=== PATIENT | female | born 1990 | race Caucasian/White ===

== ENCOUNTER 2019-11-15 13:35 | Emergency (ER) | payer OTHER, SELFPAY ==
[2019-11-15 13:40] VITALS: BP 151/89; PULSE 112; RESP 18; TEMP 37.1; O2SAT 100
--- NOTE | 2019-11-15 13:44 | ED.GENADULT ---
HPI - General Adult General Chief complaint: Urogenital-Female Stated complaint: lower back pain/urination Time Seen by Provider: 11/15/19 13:54 Source: patient Mode of arrival: ambulatory Limitations: no limitations History of Present Illness HPI narrative: 29-year-old female patient presents to the [facility] with complaints of urinary symptoms. Patient states that she was seen at [facility] about 2 weeks ago and was diagnosed with a UTI at the time and was given Macrobid. Patient states that her symptoms were doing better when she was on the antibiotic until about a couple of days after she finished the antibiotic and now her symptoms have returned with complaints of urgency, frequency, pain with urination and low back pain. Denies any fevers, nausea, vomiting or diarrhea. Patient states unsure if maybe it just did not clear up and wanted to come and get tested again. Related Data Allergies Allergy/AdvReac Type Severity Reaction Status Date / Time No Known Allergies Allergy Verified 11/15/19 13:50 Review of Systems Review of Systems: Narrative: CONSTITUTIONAL: Denies fever, chills, or sweats. EYES: Denies visual changes, redness, or discharge. ENT: Denies rhinorrhea, congestion, sore throat, or otalgia. CARDIOVASCULAR: Denies chest pain, palpitations, or edema. RESPIRATORY: Denies cough or dyspnea. GASTROINTESTINAL: Denies abdominal pain, nausea, vomiting, or diarrhea. GENITOURINARY: Denies dysuria or hematuria. Positive pain with urination, urgency, frequency SKIN: Denies rash or itching. MUSCULOSKELETAL: Positive back pain, denies joint pain, or myalgia. NEUROLOGIC: Denies headache, numbness, or weakness. PSYCHIATRIC: Denies anxiety or depression. [facility] Past Medical History Medical History Gestational diabetes Hypertension affecting UTI (urinary tract infection) Surgical History Surgical History Previous section x3 Social History Social History Gender identity (if verbalized by the patient): Female Comments At the time of my signature I agree with nursing past medical history, surgical, social, and family history. There is no relevant family history pertinent to the presenting complaint. Exam Narrative: Exam Narrative: GENERAL: Well-appearing, well-nourished, and in no acute distress. HEAD: Normocephalic, atraumatic. EYES: PERRLA and EOMI. ENT: Nares clear, no rhinorrhea or epistaxis. Mucous membranes moist. NECK: Supple. No lymphadenopathy CHEST: Clear to auscultation. No respiratory distress. HEART: Regular rate and rhythm. No murmur heard. Normal peripheral pulses. ABDOMEN: Soft, nontender, nondistended, normal active bowel sounds. No CVA tenderness on percussion. EXTREMITIES: Normal range of motion. No edema. SKIN: Warm, dry, no rash. NEURO: No focal deficits. Alert and oriented x3. Course Vital Signs Vital signs: Vital Signs Temperature 37.1 C 11/15/19 13:40 Pulse Rate 112 H 11/15/19 13:40 Respiratory Rate 18 11/15/19 13:40 Blood Pressure 151/89 H 11/15/19 13:40 Pulse Oximetry 100 11/15/19 13:40 Temperature 37.1 C 11/15/19 13:40 Pulse Rate 112 H 11/15/19 13:40 Respiratory Rate 18 11/15/19 13:40 Blood Pressure 151/89 H 11/15/19 13:40 Pulse Oximetry 100 11/15/19 13:40 Vital signs reviewed. Medical Decision Making Differential Diagnosis Differential Diagnosis: Differential diagnosis: Uncomplicated lower UTI, uncomplicated UTI, pyelonephritis Notify patient that her urine dip did show evidence of a UTI as well as her symptoms and therefore we will discharge her home with a different type of antibiotic and send a culture off to the lab. Discussed with patient that if the antibiotic is not sensitive to the bacteria found on the culture she will receive a phone call from someon
== END 2019-11-15 14:07 | disposition home or self-care (01) ==
PROVIDERS: Emergency Provider Nurse Practitioner Family
DX: N30.01 Acute cystitis with hematuria (principal)
CPT/HCPCS: 81003; 87077; 87086; 87088; 87186; 99213; G0463

== ENCOUNTER 2020-11-18 15:31 | Emergency (ER) | payer OTHER, SELFPAY ==
--- NOTE | ~2020-11-18 | XR_ITS ---
XR ankle RT min 3V DATE: 11/18/2020 15:51 INDICATION: Patient fell down 4 steps. Anterolateral ankle pain. TECHNIQUE: 4 views COMPARISON: None FINDINGS: Mild posterior calcaneal enthesopathy. No fracture or dislocation of the ankle or disruption of the ankle mortise. IMPRESSION: No fracture or dislocation of the ankle Reviewed, dictated and finalized at location A. ASSESSOR
[2020-11-18 15:38] VITALS: BP 148/92; PULSE 100; RESP 20; TEMP 36.5; O2SAT 99
--- NOTE | 2020-11-18 16:20 | ED.GENADULT ---
HPI - General Adult General Chief complaint: Extremity Injury, Lower <Aixa Gallegos PA-C - Last Filed: 11/18/20 16:34> Stated complaint: right ankle pain <Aixa Gallegos PA-C - Last Filed: 11/18/20 16:34> Time Seen by Provider: 11/18/20 15:51 <Aixa Gallegos PA-C - Last Filed: 11/18/20 16:34> Source: patient <GARRY Hare Last Filed: 11/18/20 16:34> Mode of arrival: ambulatory <GARRY Hare Last Filed: 11/18/20 16:34> Limitations: no limitations <Aixa Gallegos PA-C - Last Filed: 11/18/20 16:34> History of Present Illness HPI narrative: 30-year-old female who slipped when she stepped on a child's toy on the steps and went down two steps and twisted her ankle. Accident happened about 2 hours prior to coming to the emergency room, she states she tried to treat at home with some ice. States she is able to limp but with significant pain. <Aixa Gallegos PA-C - Last Filed: 11/18/20 16:34> Onset (ago): hour(s) <Aixa Gallegos PA-C - Last Filed: 11/18/20 16:34> Location: lower extremity (right ankle) <GARRY Hare Last Filed: 11/18/20 16:34> Severity scale (1-10): 3 (at rest) <Aixa Gallegos PA-C - Last Filed: 11/18/20 16:34> Quality: aching <GARRY Hare Last Filed: 11/18/20 16:34> Pain Consistency: intermittent (worse with movment or weight bearing) <Aixa Gallegos PA-C - Last Filed: 11/18/20 16:34> Relieving factors: rest <GARRY Hare Last Filed: 11/18/20 16:34> Exacerbating factors: movement <Aixa Gallegos PA-C - Last Filed: 11/18/20 16:34> Associated symptoms: denies other symptoms <Aixa Gallegos PA-C - Last Filed: 11/18/20 16:34> Treatments prior to arrival: none <Aixa Gallegos PA-C - Last Filed: 11/18/20 16:34> Related Data Home medications: Home Medications Medication Instructions Recorded Confirmed No Home Medications 11/18/20 11/18/20 <Aixa Gallegos PA-C - Last Filed: 11/18/20 16:34> Allergies/adverse reactions: Allergies Allergy/AdvReac Type Severity Reaction Status Date / Time No Known Allergies Allergy Verified 11/18/20 15:42 <Aixa Gallegos PA-C - Last Filed: 11/18/20 16:34> Review of Systems Review of Systems: All systems reviewed & are unremarkable except as noted in HPI and below <Aixa Gallegos PA-C - Last Filed: 11/18/20 16:34> [facility] Past Medical History Medical History: Medical History (Updated 11/18/20 @ 16:33 by Aixa Gallegos PA-C) Gestational diabetes Hypertension affecting UTI (urinary tract infection) <Aixa Gallegos PA-C - Last Filed: 11/18/20 16:34> Surgical History Surgical History: Surgical History Previous section x3 <Aixa Gallegos PA-C - Last Filed: 11/18/20 16:34> Social History Social History: Social History (Updated 11/18/20 @ 16:24 by Aixa Gallegos PA-C) Smoking status: Never smoker Alcohol intake: never Substance use: never Living arrangements: with family Occupation/Education: occupation 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 [employer] Gender identity (if verbalized by the patient): Female <Aixa Gallegos PA-C - Last Filed: 11/18/20 16:34> Exam Const: General: no acute distress and alert <Aixa Gallegos PA-C - Last Filed: 11/18/20 16:34> Orientation/consciousness: patient oriented x3 <GARRY Hare Last Filed: 11/18/20 16:34> Eyes: Pupils: Equal, round and reactive pupils present <GARRY Hare Last Filed: 11/18/20 16:34> Resp: Effort & Inspection: normal respiratory effort <GARRY Hare Last Filed: 11/18/20 16:34> Cardio: Rate: regular rate <GARRY Hare Last Filed: 11/18/20 16:34> Rhythm: regular rhythm <GARRY Hare Last Filed: 11/18/20 16:34> [facility]
[2020-11-18 16:41] VITALS: BP 136/70; PULSE 70; RESP 12; O2SAT 99
== END 2020-11-18 16:41 | disposition home or self-care (01) ==
PROVIDERS: Emergency Provider General Practice; PCP Nurse Practitioner Family
DX: S93.401A Sprain of unspecified ligament of right ankle, initial encounter (principal); S96.911A Strain of unspecified muscle and tendon at ankle and foot level, right foot, initial encounter; Z87.440 Personal history of urinary (tract) infections; W10.9XXA Fall (on) (from) unspecified stairs and steps, initial encounter
CPT/HCPCS: 73610; 99283

== ENCOUNTER 2021-06-19 11:15 | Emergency (ER) | payer OTHER, SELFPAY ==
[2021-06-19 11:27] VITALS: BP 135/91; PULSE 99; RESP 18; TEMP 36.8; O2SAT 100
--- NOTE | 2021-06-19 11:39 | ED.FEMALEGU ---
HPI - Female Genitourinary General Chief complaint: Urogenital-Female Stated complaint: Female Genitalia Source: patient Mode of arrival: ambulatory Limitations: no limitations History of Present Illness HPI Narrative: Patient is a 30-year-old female who presents complaining of vaginal itching and discharge. Patient reports symptoms x1 week. She reports slight burning with urination. She reports using [id number] Monistat and Azo without relief. She denies known exposure to STDs. She denies pelvic pain. Patient denies possibility of . Patient has no significant medical history. Patient unable to get into HEALTHCARE MANAGEMENT CONSULTANT or PCP at this time. MD elicited complaint: vaginal discharge Related Data Allergies Allergy/AdvReac Type Severity Reaction Status Date / Time No Known Allergies Allergy Verified 06/19/21 11:31 Review of Systems Review of Systems: CONSTITUTIONAL: Denies fever, chills, or sweats. EYES: Denies visual changes, redness, or discharge. ENT: Denies rhinorrhea, congestion, sore throat, or otalgia. CARDIOVASCULAR: Denies chest pain, palpitations, or edema. RESPIRATORY: Denies cough or dyspnea. GASTROINTESTINAL: Denies abdominal pain, nausea, vomiting, or diarrhea. GENITOURINARY: Reports mild dysuria, vaginal discharge SKIN: Denies rash or itching. MUSCULOSKELETAL: Denies back pain, joint pain, or myalgia. NEUROLOGIC: Denies headache, numbness, dizziness, or weakness. PSYCHIATRIC: Denies anxiety or depression. 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 Please see nursing chart for further information. There is no relevant family history pertinent to the presenting complaint. Exam Narrative: GENERAL: Well-appearing, well-nourished, and in no acute distress. HEAD: Normocephalic, atraumatic. EYES: EOMI. No redness or drainage. Conjunctiva are normal. ENT: Mucous membranes pink and moist. CHEST: No respiratory distress. HEART: Regular rate and rhythm. : Patient declines pelvic exam at this time as she has children with her. MUSCULOSKELETAL: No bony tenderness. EXTREMITIES: Normal range of motion. No edema. SKIN: Warm, dry, no rash. NEURO: No focal deficits. Alert and oriented x3. Gait steady. PSYCH: Normal affect. No signs of depression or anxiety. Course Vital Signs Vital signs: Vital Signs Temperature 36.8 C 06/19/21 11:27 Pulse Rate 99 06/19/21 11:27 Respiratory Rate 18 06/19/21 11:27 Blood Pressure 135/91 H 06/19/21 11:27 Pulse Oximetry 100 06/19/21 11:27 Temperature 36.8 C 06/19/21 11:27 Pulse Rate 99 06/19/21 11:27 Respiratory Rate 18 06/19/21 11:27 Blood Pressure 135/91 H 06/19/21 11:27 Pulse Oximetry 100 06/19/21 11:27 Reviewed-patient is informed that they may have pre-hypertension or hypertension based on a blood pressure reading. I recommend the patient call the primary care provider listed on their discharge instructions or a physician of their choice this week to arrange follow-up for further evaluation of possible pre-hypertension or hypertension. MDM - Female Genitourinary MDM Narrative Medical decision making narrative: Patient declines pelvic exam at this time as she has children in the room with her. Discussed with patient the need to do a
[2021-06-19 12:01] LABS: Glucose Point of Care 96 mg/dl (65-105)
== END 2021-06-19 12:06 | disposition home or self-care (01) ==
PROVIDERS: Emergency Provider Nurse Practitioner; PCP Nurse Practitioner Family
DX: N89.8 Other specified noninflammatory disorders of vagina (principal)
CPT/HCPCS: 81003; 82948; 87491; 87591; 87661; 99214; G0463

== ENCOUNTER 2022-01-04 06:34 | Emergency (ER) | payer OTHER, SELFPAY ==
[2022-01-04 06:37] VITALS: BP 154/105; PULSE 104; RESP 17; TEMP 37.3; O2SAT 97
--- NOTE | 2022-01-04 07:40 | PC.NURSE ---
Pt seen walking out by staff that was sitting near her room
== END 2022-01-04 07:40 | disposition left against medical advice (07) ==
PROVIDERS: PCP Nurse Practitioner Family
DX: J02.9 Acute pharyngitis, unspecified (principal)
CPT/HCPCS: 99199

== ENCOUNTER 2022-01-04 08:03 | Emergency (ER) | payer OTHER, SELFPAY ==
[2022-01-04 08:11] VITALS: BP 121/84; PULSE 113; RESP 16; TEMP 37.2; O2SAT 99
--- NOTE | 2022-01-04 08:16 | ED.URI ---
HPI - URI/Sore Throat General Chief Complaint: Upper Respiratory Infection Stated Complaint: Sore Throat,Ear Pain Time Seen by Provider: 01/04/22 08:16 Source: patient Mode of arrival: ambulatory Limitations: no limitations History of Present Illness HPI Narrative: 31-year-old female presents with complaint of sore throat, right ear pain for 3 days. Unsure if fever, does not have thermometer to check temp. Has had chills, fatigue, headache, bodyaches. Was at ER this AM and states wait was too long. All systems reviewed and negative except as noted above. Related Data Allergies Allergy/AdvReac Type Severity Reaction Status Date / Time No Known Allergies Allergy Verified 01/04/22 08:06 Review of Systems Review of Systems: CONSTITUTIONAL: Reports fever, chills, or sweats. EYES: Denies visual changes, redness, or discharge. ENT: Denies rhinorrhea, congestion. Reports sore throat, or otalgia. CARDIOVASCULAR: Denies chest pain, palpitations, or edema. RESPIRATORY: Denies cough or dyspnea. GASTROINTESTINAL: Denies abdominal pain, nausea, vomiting, or diarrhea. GENITOURINARY: Denies dysuria or hematuria. SKIN: Denies rash or itching. MUSCULOSKELETAL: Denies back pain, joint pain, or myalgia. NEUROLOGIC: Denies headache, numbness, or weakness. PSYCHIATRIC: Denies anxiety or depression. All other systems reviewed are negative, except as documented in HPI. 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 There is no relevant family history pertinent to the presenting complaint. Exam Narrative: GENERAL: This is a well-nourished, well-developed patient, in no apparent distress. HEAD: normocephalic, atraumatic. EYES: PERRL. Sclera clear/white. Vision is grossly intact. EARS: External ears normal, auditory canals clear and without drainage, TMs normal without perforation. Hearing grossly intact. NOSE: External nose normal with no obvious nasal discharge, nares without redness, no rhinorrhea. THROAT: Mucous membranes moist. Erythema to posterior pharynx, tonsils 1+ bilaterally, exudates. NECK: Neck supple, non-tender without lymphadenopathy, masses or thyromegaly. CARDIOVASCULAR: Regular rate and rhythm without murmurs, gallops, or rubs. RESPIRATORY: Clear to auscultation. Breath sounds equal bilaterally. No wheezes, rales, or rhonchi. GASTROINTESTINAL: Abdomen soft, non-tender, nondistended. Bowel sounds are active. No hepato-splenomegaly, or palpable masses. No guarding. SKIN: warm, Dry, intact with no suspicious lesions or rash, good texture and turgor. NEURO: awake, alert, and oriented to person, place and time. There were no obvious focal neurologic abnormalities. EXTREMITIES: No joint tenderness, effusion, or edema noted. No calf tenderness. Negative Homans sign bilaterally. BACK: Nontender without deformity. No CVA tenderness. Course Course Level of Care: Express Care Visit Vital Signs Vital signs: Vital Signs Temperature 37.2 C 01/04/22 08:11 Pulse Rate 113 H 01/04/22 08:11 Respiratory Rate 16 01/04/22 08:11 Blood Pressure 121/84 01/04/22 08:11 Pulse Oximetry 99 01/04/22 08:11 Temperature 37.2 C 01/04/22 08:11 Pulse Rate 113 H 01/04/22 08:11 Respiratory Rate 16 01/04/22 08:11 Blood Pressure 121/84 01/04/22 08:11 Pulse Oximetry 99 03/1
== END 2022-01-04 08:24 | disposition home or self-care (01) ==
PROVIDERS: Emergency Provider Nurse Practitioner Family; PCP Nurse Practitioner Family
DX: J02.0 Streptococcal pharyngitis (principal)
CPT/HCPCS: 87880; 99213; G0463

== ENCOUNTER 2022-01-19 15:03 | Emergency (ER) | payer OTHER, SELFPAY ==
[2022-01-19 15:14] VITALS: BP 136/85; PULSE 98; RESP 18; TEMP 36.6; O2SAT 100
--- NOTE | 2022-01-19 15:29 | ED.FEMALEGU ---
HPI - Female Genitourinary General Chief complaint: Urogenital-Female Stated complaint: vaginal discharge Time Seen by Provider: 01/19/22 15:29 Source: patient and RN notes reviewed Mode of arrival: ambulatory Limitations: no limitations History of Present Illness HPI Narrative: 31-year-old female presented for complaint of vaginal discharge of the last few days. Discharge is white in color. She endorses burning with intercourse and wiping. She states it started after she went swimming and attributes it to this. She denies concern for STDs and would not like to be checked. Denies nausea, vomiting, diarrhea, dysuria, hematuria, irregular bleeding, flank pain, fever, lesions or order at this time. She did try 1 dose of [id number] yeast medication without any relief in symptoms. LMP 12/22/21. Related Data Allergies Allergy/AdvReac Type Severity Reaction Status Date / Time No Known Allergies Allergy Verified 01/19/22 15:39 Review of Systems Review of Systems: CONSTITUTIONAL: Denies body aches, fever, chills, or sweats. CARDIOVASCULAR: Denies chest pain, palpitations, or edema. RESPIRATORY: Denies cough or dyspnea. GASTROINTESTINAL: Denies abdominal pain, nausea, vomiting, or diarrhea. GENITOURINARY: Reports vaginal dc, denies dysuria, frequency, urgency, hematuria, flank pain SKIN: Denies rash, itching, or wounds. MUSCULOSKELETAL: Denies back pain or myalgia. 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 Please see nursing chart for further information. There is no relevant family history pertinent to the presenting complaint Exam Narrative: GENERAL: Well-appearing HEAD: Normocephalic EYES: EOMI. . ENT: Mucous membranes pink and moist. NECK: Normal AROM. Supple. CHEST: No respiratory distress. Clear to auscultation. HEART: Regular rate and rhythm. ABDOMEN: Soft, nontender, nondistended, normal active bowel sounds. No CVA tenderness MUSCULOSKELETAL: No bony tenderness. SKIN: Warm, dry, no rash. NEURO: No focal deficits. Alert and oriented x3. Gait steady. PSYCH: Normal affect. No signs of depression or anxiety. Course Course Emergency Course: Patient is aware of diagnosis, understands and agrees to treatment plan. Anticipatory guidance given. Patient agrees to follow-up as directed and is aware of reasons to seek care at the emergency department. Portions of this record may have been created with voice recognition software Level of Care: Express Care Visit Vital Signs Vital signs: Vital Signs Temperature 98 F 01/19/22 15:14 Pulse Rate 98 01/19/22 15:14 Respiratory Rate 18 01/19/22 15:14 Blood Pressure 136/85 01/19/22 15:14 Pulse Oximetry 100 01/19/22 15:14 Temperature 98 F 01/19/22 15:14 Pulse Rate 98 01/19/22 15:14 Respiratory Rate 18 01/19/22 15:14 Blood Pressure 136/85 01/19/22 15:14 Pulse Oximetry 100 01/19/22 15:14 Reviewed MDM - Female Genitourinary MDM Narrative Medical decision making narrative: Pt provided minimal urine sample which showed no leuk/Nit. She drank water and provided another sample to be sent for cx. Given her symptoms, Rx Flagyl and diflucan provided. She is advised to get tested for STD at this time but refuses. She will f/u with obgyn
== END 2022-01-19 15:58 | disposition home or self-care (01) ==
PROVIDERS: Emergency Provider Nurse Practitioner Family; PCP Nurse Practitioner Family
DX: N89.8 Other specified noninflammatory disorders of vagina (principal)
CPT/HCPCS: 81003; 87086; 87088; 99213; G0463

== ENCOUNTER 2022-02-10 12:59 | Emergency (ER) | payer OTHER, SELFPAY ==
[2022-02-10 13:10] VITALS: BP 138/86; PULSE 80; RESP 18; TEMP 36.6; O2SAT 100
--- NOTE | 2022-02-10 13:10 | ED.FEMALEGU ---
HPI - Female Genitourinary General Chief complaint: Urogenital-Female Stated complaint: Yeast Infection Time Seen by Provider: 02/10/22 13:10 Source: patient, RN notes reviewed and old records reviewed Mode of arrival: ambulatory Limitations: no limitations History of Present Illness HPI Narrative: 31-year-old female presents to the [facility] with complaints of vaginal dryness and irritation. Has been seen for vaginal discharge on January 19, states that symptoms have not gotten much better. Did take the Diflucan and the Flagyl. States she has irritation and states that she feels very dry worse during intercourse. She has been with the same person for 14 years, low suspicion of STD. Denies any abdominal pain or chest pain. No nausea vomiting or diarrhea. No urgency or burning with urination MD elicited complaint: genital itching Related Data Allergies Allergy/AdvReac Type Severity Reaction Status Date / Time No Known Allergies Allergy Verified 02/10/22 13:32 Review of Systems Review of Systems: All systems reviewed & are unremarkable except as noted in HPI and below Constitutional: Constitutional: Reports no additional constitutional complaints, Denies chills and Denies fatigue Eyes: Eyes: Reports no additional eye complaints ENT: Reports system reviewed and no additional complaints, except as documented Cardiovascular: Cardiovascular: Reports no additional cardiovascular complaints Respiratory: Respiratory: Reports no additional respiratory complaints Gastrointestinal: Gastrointestinal: Reports no additional gastrointestinal complaints, Denies abdominal pain, Denies diarrhea, Denies nausea and Denies vomiting Genitourinary: Genitourinary: Reports as per HPI, Denies hematuria, Denies nocturia, Denies dysuria, Denies flank pain, Denies vaginal discharge and Reports vaginal dryness Musculoskeletal: Musculoskeletal: Reports no additional musculoskeletal complaints and Denies back pain Integumentary/Breasts: Skin/Breast: Reports system reviewed and no additional complaints, except as docu Neurologic: Reports system reviewed and no additional complaints, except as documented Psychiatric: Psychiatric: Reports no additional psychiatric complaints Allergic/Immunologic: Allergic/Immunologic: Reports no additional allergic/immunologic complaints PMFSH Past Medical History Medical History (Updated 02/10/22 @ 19:35 by Joan Elmore APRN) Gestational diabetes Hypertension affecting UTI (urinary tract infection) Surgical History Surgical History Previous section x3 Social History Social History Smoking status: Never smoker Alcohol intake: never Substance use: never 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 There is no relevant family history pertinent to the patient complaint. Exam Const: General: healthy appearing, no acute distress and alert Nutritional Appearance: well nourished Orientation/consciousness: patient oriented x3 Limitations: no limitations HENMT: Head: normal to inspection Ears: external ears normal Eyes: Conjunctivae: conjunctivae normal Pupils: Equal, round and reactive pupils present Neck: Neck: normal visual inspection, no lymphadenopathy and no meningeal signs Chest: Chest palpation & inspection: normal inspection of the chest and abnormal inspection of the chest Resp: Effort & Inspection: normal respiratory effort Auscultation: clear to auscultation bilaterally Cardio: Rate: regular rate Rhythm: regular rhythm GI: GI Palp: Yes Soft to palpation and No Tenderness to palpation present (GI) : General: Yes no CVA tenderness 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
== END 2022-02-10 13:50 | disposition home or self-care (01) ==
PROVIDERS: Emergency Provider Nurse Practitioner; PCP Nurse Practitioner Family
DX: N76.0 Acute vaginitis (principal)
CPT/HCPCS: 87070; 87077; 87491; 87591; 87661; 99214; G0463

== ENCOUNTER 2022-07-18 14:44 | Emergency (ER) | payer OTHER, SELFPAY ==
[2022-07-18 14:51] VITALS: BP 142/89; PULSE 81; RESP 16; TEMP 36.4; O2SAT 100
--- NOTE | 2022-07-18 15:59 | ED.FEMALEGU ---
HPI - Female Genitourinary General Chief complaint: Urogenital-Female Stated complaint: possible yeast infection Time Seen by Provider: 07/18/22 15:59 Source: patient, RN notes reviewed and old records reviewed Mode of arrival: ambulatory Limitations: no limitations History of Present Illness HPI Narrative: 31-year-old female presents to the [facility] with complaints of vaginal discharge. Had similar episode a couple months ago. States that treatment worked very well. States she has a thick white discharge that has a fishy smell. Does not believe that she needs a pelvic exam, similar symptoms a couple of months ago and states treatment worked well. Discussed the patient is nontoxic. Vitals are stable Related Data Allergies Allergy/AdvReac Type Severity Reaction Status Date / Time No Known Allergies Allergy Verified 02/10/22 13:32 Review of Systems Review of Systems: All systems reviewed & are unremarkable except as noted in HPI and below Constitutional: Constitutional: Reports no additional constitutional complaints, Denies chills and Denies fatigue Eyes: Eyes: Reports no additional eye complaints ENT: Reports system reviewed and no additional complaints, except as documented Cardiovascular: Cardiovascular: Reports no additional cardiovascular complaints Respiratory: Respiratory: Reports no additional respiratory complaints Gastrointestinal: Gastrointestinal: Reports no additional gastrointestinal complaints, Denies abdominal pain, Denies diarrhea, Denies nausea and Denies vomiting Genitourinary: Genitourinary: Reports as per HPI, Denies hematuria, Denies nocturia, Denies dysuria, Denies flank pain and Reports vaginal discharge Musculoskeletal: Musculoskeletal: Reports no additional musculoskeletal complaints and Denies back pain Integumentary/Breasts: Skin/Breast: Reports system reviewed and no additional complaints, except as docu Neurologic: Reports system reviewed and no additional complaints, except as documented Psychiatric: Psychiatric: Reports no additional psychiatric complaints Endocrine: Endocrine: Denies fatigue Allergic/Immunologic: Allergic/Immunologic: Reports no additional allergic/immunologic complaints [facility] Past Medical History Medical History (Updated 07/18/22 @ 16:08 by Joan Elmore APRN) Gestational diabetes Hypertension affecting UTI (urinary tract infection) Surgical History Surgical History Previous section x3 Social History Social History Smoking status: Never smoker Alcohol intake: never Substance use: never 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 There is no relevant family history pertinent to the patient complaint. Exam Const: General: healthy appearing, no acute distress and alert Nutritional Appearance: well nourished Orientation/consciousness: patient oriented x3 Limitations: no limitations HENMT: Head: normal to inspection Eyes: Conjunctivae: conjunctivae normal Pupils: Equal, round and reactive pupils present Neck: Neck: normal visual inspection, no lymphadenopathy and no meningeal signs Chest: Chest palpation & inspection: normal inspection of the chest and abnormal inspection of the chest Resp: Effort & Inspection: normal respiratory effort Auscultation: clear to auscultation bilaterally Cardio: Rate: regular rate Rhythm: regular rhythm GI: GI Palp: Yes Soft to palpation and No Tenderness to palpation present (GI) : General: Yes no CVA tenderness Back/Spine/Pelvis: Back: no CVA tenderness Skin: General skin exam: normal color Rashes: no rashes Wounds: no wounds Neuro: General: patient
== END 2022-07-18 16:11 | disposition home or self-care (01) ==
PROVIDERS: Emergency Provider Nurse Practitioner; PCP Nurse Practitioner Family
DX: N76.0 Acute vaginitis (principal)
CPT/HCPCS: 99213; G0463

== ENCOUNTER 2022-11-11 11:02 | Emergency (ER) | payer OTHER, SELFPAY ==
--- NOTE | 2022-11-11 11:09 | ED.URI ---
HPI - URI/Sore Throat General Chief Complaint: Upper Respiratory Infection Stated Complaint: sore throat/left ear pain Time Seen by Provider: 11/11/22 11:31 Source: patient and RN notes reviewed Mode of arrival: ambulatory Limitations: no limitations History of Present Illness HPI Narrative: 32-year-old female presents concern for left ear pain, sore throat, nausea, headache started last night. She denies known sick contacts. MD elicited complaint: sore throat Related Data Allergies Allergy/AdvReac Type Severity Reaction Status Date / Time No Known Allergies Allergy Verified 11/11/22 11:29 Review of Systems Review of Systems: CONSTITUTIONAL: Reports malaise EYES: Denies visual changes, redness, or discharge. ENT: Denies rhinorrhea, congestion, sinus pain. Reports otalgia and sore throat. CARDIOVASCULAR: Denies chest pain, palpitations, or edema. RESPIRATORY: Denies cough. Denies dyspnea. GASTROINTESTINAL: Denies abdominal pain, nausea, diarrhea. Reports nausea SKIN: Denies rash or itching. MUSCULOSKELETAL: Denies myalgia. NEUROLOGIC: Reports headache. 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 There is no relevant family history pertinent to the presenting complaint Exam Narrative: GENERAL: Well-appearing, well-nourished, and in no acute distress. HEAD: Normocephalic EYES: PERRLA, conjunctivae clear ENT: Nares clear, turbinates edematous and erythematous, clear discharge. Mucous membranes moist. TM pearly londono with dull light reflex bilaterally; no tragal tenderness. Oropharynx not erythematous without lesions. Tonsils not enlarged and without exudate, no drooling, no hoarseness, no trismus, uvula midline. NECK: Supple. No lymphadenopathy CHEST: Clear to auscultation, breath sounds equal. No wheezing, rhonchi, rales, or stridor. No respiratory distress, speaks in full sentences. HEART: Regular rate and rhythm. No murmur heard. SKIN: Warm, dry, no rash. NEURO: Alert and oriented x3. PSYCH: Normal mood and affect Course Course Emergency Course: Patient is aware of diagnosis, understands and agrees to treatment plan. Anticipatory guidance given. Patient agrees to follow-up as directed and is aware of reasons to seek care at the emergency department. Portions of this record may have been created with voice recognition software Level of Care: Express Care Visit Vital Signs Vital signs: Reviewed. MDM - URI/Sore Throat MDM Narrative Medical decision making narrative: Differential diagnosis considered: [place] virus, strep pharyngitis, allergic rhinitis, upper respiratory tract infection, sinusitis, rhinosinusitis, nasopharyngitis. viral pharyngitis, otitis media, otitis externa, pneumonia, bronchitis, viral cough syndrome, viral syndrome, and influenza. Exam findings show no acute concerns or changes; patient is non-toxic appearing and is in no distress. Patient is appropriate for outpatient treatment and follow-up. Lab Data Attestation: I reviewed the patient's lab results. Critical Care Time Critical Care Time Critical Care Time: No Discharge Plan Discharge Clinical Impression: Acute streptococcal pharyngitis Diann
[2022-11-11 11:16] VITALS: BP 140/87; PULSE 115; RESP 16; TEMP 38.2; O2SAT 100
== END 2022-11-11 11:38 | disposition home or self-care (01) ==
PROVIDERS: Emergency Provider Nurse Practitioner; PCP Nurse Practitioner Family
DX: J02.0 Streptococcal pharyngitis (principal)
CPT/HCPCS: 87880; 99213; G0463

== ENCOUNTER 2022-12-25 14:33 | Emergency (ER) | payer OTHER, SELFPAY ==
[2022-12-25 14:42] VITALS: BP 139/92; PULSE 95; RESP 16; TEMP 36.8; O2SAT 100
--- NOTE | 2022-12-25 15:06 | ED.URI ---
HPI - URI/Sore Throat General Chief Complaint: Urogenital-Female Stated Complaint: Vaginal Pain Time Seen by Provider: 12/25/22 14:50 Source: patient Mode of arrival: ambulatory Limitations: no limitations History of Present Illness HPI Narrative: Azeb is a 32-year-old female patient presenting to clinic today with complaints of vaginal discharge x1 week. She reports she is having some burning and itching as well as white vaginal discharge and foul odor. She denies any new sexual partners. She has tried Monistat cream without relief. She has had bacterial vaginosis in the past and is concerned that this may be BV infection. Related Data Allergies Allergy/AdvReac Type Severity Reaction Status Date / Time No Known Allergies Allergy Verified 12/25/22 14:46 Review of Systems Review of Systems: Pertinent positives per HPI. Patient denies any fever, chills, rash, headache, visual changes, dizziness, cough, runny nose, sore throat, shortness of breath, chest pain, palpitations, nausea, vomiting, diarrhea, constipation, abdominal pain, or any urinary issues. 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 There is no relevant family history pertinent to the patient complaint. Exam Narrative: General: Well-developed, well nourished, in no apparent distress Head: Normocephalic, atraumatic. Cardio: Regular rate and rhythm, s1 and s2 normal, no murmur appreciated. Resp: Clear to auscultation bilaterally, no rhonchi, rales, wheezing or rubs. Abdomen: Soft, pliable, bowel sounds present in all quadrants, non-tender to palpation, no CVAT tenderness. : Pelvic exam performed with (Korin SOMMERS) at bedside. Verbal consent obtained from patient. Normal external female genitalia without lesions or masses, Urinary meatus: patent without discharge, Vagina: No lesions, masses, thin white vaginal discharge Cervix: pink without mass, lesions, discharge, or tenderness. Adnexa: without palpable mass or tenderness. Course Course Emergency Course: Portions of this record may have been created with voice recognition software. Level of Care: Express Care Visit Vital Signs Vital signs: Vital Signs Temperature 36.8 C 12/25/22 14:42 Pulse Rate 95 12/25/22 14:42 Respiratory Rate 16 12/25/22 14:42 Blood Pressure 139/92 H 12/25/22 14:42 Pulse Oximetry 100 12/25/22 14:42 Oxygen Delivery Room Air 12/25/22 14:42 Temperature 36.8 C 12/25/22 14:42 Pulse Rate 95 12/25/22 14:42 Respiratory Rate 16 12/25/22 14:42 Blood Pressure 139/92 H 12/25/22 14:42 Pulse Oximetry 100 12/25/22 14:42 Oxygen Delivery Room Air 12/25/22 14:42 Vital signs reviewed MDM - URI/Sore Throat MDM Narrative Medical decision making narrative: At the time of the patient is resting comfortably on the exam table. Patient has thin white vaginal discharge suspicious for bacterial vaginosis. Will send in prescription for some metronidazole and supportive measures were discussed with the patient she voiced understanding discharge instructions. Genital culture was sent to the lab. Differential Diagnosis Differential diagnosis: Likely other (Bacterial vaginosis, STD, yeast
== END 2022-12-25 15:15 | disposition home or self-care (01) ==
PROVIDERS: Emergency Provider Nurse Practitioner Family; PCP Nurse Practitioner Family
DX: N89.8 Other specified noninflammatory disorders of vagina (principal)
CPT/HCPCS: 81003; 87070; 87077; 99213; G0463

== ENCOUNTER 2023-06-08 16:26 | Outpatient (CLI) | payer OTHER, SELFPAY ==
--- NOTE | ~2023-06-08 | US_ITS ---
EXAMINATION: US venous doppler [facility] DATE: 06/08/2023 17:09 INDICATION: Lower limb swelling TECHNIQUE: Grayscale ultrasound images without and with compression and Doppler ultrasound images of the bilateral lower extremity veins were obtained. COMPARISON: None. FINDINGS: The visualized portions of right common femoral vein, profunda (deep) femoral vein, femoral vein, pop liteal vein, posterior tibial veins, peroneal veins, gastrocnemius vein and greater saphenous vein ou tflow are patent. The visualized portions of left common femoral vein, profunda femoral vein, femoral vein, popliteal v ein, posterior tibial veins, peroneal veins, gastrocnemius vein and greater saphenous vein outflow ar e patent. IMPRESSION: 1. No deep venous thrombosis in either lower limb. Reviewed, dictated and finalized at location A.
== END 2023-06-08 16:27 | disposition home or self-care (01) ==
LOC: ANHIMG 16:30
PROVIDERS: PCP Nurse Practitioner Family; Visit Provider Advanced Practice Midwife
DX: R60.0 Localized edema (principal)
CPT/HCPCS: 93970

== ENCOUNTER 2023-06-16 10:14 | Observation (INO) | payer OTHER, SELFPAY ==
[2023-06-16] VITALS (28 sets, daily range): BP systolic 114–138; BP diastolic 67–74; PULSE 124–141; TEMP 37.3; O2SAT 96–100; BMI 34.4
--- NOTE | 2023-06-16 10:14 | OBADM ---
This patient, Azeb Robledo, admitted to the OB room [facility] for observation. Patient/family oriented to hospital policies and general routines including ID bracelet, bed and alarms, visiting hours, pain management, procedures, bathroom and other care routines, personal items, smoking policy, room service/diet, and visiting hours. Patient/Family are encouraged to report perceived risks to care and to ask questions if they do not understand what they are told or what they should do.
[2023-06-16 11:11] LABS: Appearance Urine Clear (Clear); Bilirubin Urine Negative (Negative); Blood Urine Negative (Negative); Color Urine Yellow (Yellow); Glucose Urine UA Negative (Negative); Ketones Urine 2+ mg/dL (Negative); Leukocyte Esterase Ur Negative LEU/UL (NEGATIVE); Nitrate Urine Negative (Negative); Protein Urine Negative (Negative); Specific Grav Ur 1.013 (1.001-1.035); Urobilinogen Urine 0.2 mg/dL (<2.0)
[2023-06-16 11:13] LABS: Add Urine Microscopic? NO
[2023-06-16] MEDS: ONDANSETRON INJ 4 MG/2 ML VIAL IV PUSH (13:30)
[2023-06-16] MEDS: DEXTROSE 5%/0.45% SOD CHL 1,000 ML 999 ML IV CONT (13:30)
[2023-06-16 13:31] LABS: Basophils Percent Auto 0.3 % (0.2-1.2); Eosinophils Percent Auto 0.3 % (0-4.4); Hematocrit 34.8 % (37.0-47.0); Hemoglobin 11.4 g/dL (12.0-15.0); Immature Granulocyte Absolute 0.11 K/mm3 (0.00-0.031); Immature Granulocyte Percent A 1.4 % (0-0.5); Lymphocytes Absolute Auto 0.45 K/mm3 (0.9-3.2); Lymphocytes Percent Auto 5.9 % (18.3-44.2); Mean Corpuscular HGB Conc 32.8 g/dl (32-36); Mean Corpuscular Hemoglobin 29.6 pg (26-34); Mean Corpuscular Volume 90.4 fl (80-100); Mean Platelet Volume 9.5 fl (7.4-10.4); Monocytes Absolute Auto 0.6 K/mm3 (0.1-0.6); Monocytes Percent Auto 8.2 % (2.6-8.5); Neutrophils Absolute Auto 6.4 K/mm3 (1.3-6.7); Neutrophils Percent Auto 83.9 % (45.5-73.1); Platelet Count Result 171 k/mm3 (150-375); Red Blood Count 3.85 M/mm3 (4.2-5.4); Red Cell Distribution Width 12.2 % (11.5-14.5); White Blood Count 7.6 K/mm3 (4.5-10.0)
[2023-06-16] MEDS: ACETAMINOPHEN 500 MG TABLET 1000 MG PO (13:31)
[2023-06-16 13:41] LABS: Alanine Aminotransferase 25 U/L (6-35); Albumin Level 3.7 g/dL (3.5-5.1); Alkaline Phosphatase 68 U/L (38-126); Anion Gap 12 mmol/L (8-16); Aspartate Amino Transferase 49 U/L (14-36); Bilirubin,Total 0.5 mg/dL (0.2-1.3); Blood Urea Nitrogen 4 mg/dL (7-17); Calcium 8.4 mg/dL (8.4-10.2); Carbon Dioxide 21 mmol/L (22-30); Chloride 98 mmol/L (98-107); Estimated CRCL calculation 226 ml/min; Estimated Glomerular Filt Rate > 60; Glucose 87 mg/dL (65-110); Potassium 4.1 mmol/L (3.4-5.0); Sodium 131 mmol/L (137-145)
--- NOTE | 2023-06-19 07:32 | P.PNOB_ITS ---
OB - Triage/Final Diagnosis Visit Information Comments/Additional reasons for admission: I have assessed the risk for this patient, Azeb Robledo, and determined that she would benefit from observation care. Evaluation Laboratory results: Laboratory Tests 06/16/23 06/16/23 11:04 13:09 WBC 7.6 RBC 3.85 L Hgb 11.4 L Hct 34.8 L MCV 90.4 MCH 29.6 MCHC 32.8 RDW 12.2 Plt Count 171 MPV 9.5 Immature Gran % (Auto) 1.4 H Neut % (Auto) 83.9 H Lymph % (Auto) 5.9 L Catron % (Auto) 8.2 Eos % (Auto) 0.3 Baso % (Auto) 0.3 Lymph # (Auto) 0.45 L Catron # (Auto) 0.6 Eos # (Auto) 0.0 Baso # (Auto) 0.0 Abs Immat Gran (auto) 0.11 H Absolute Neuts (auto) 6.4 Absolute Nucleated RBC 0.0 Nucleated RBC % 0.0 Sodium 131 L Potassium 4.1 Chloride 98 Carbon Dioxide 21 L Anion Gap 12 BUN 4 L Creatinine 0.30 L Estim Creat Clear Calc 226 Estimated GFR > 60 Glucose 87 Calcium 8.4 Total Bilirubin 0.5 AST 49 H ALT 25 Alkaline Phosphatase 68 Total Protein 7.0 Albumin 3.7 Urine Color Yellow Urine Appearance Clear Urine pH 7.0 Ur Specific [place] 1.013 Urine Protein Negative Urine Glucose (UA) Negative Urine Ketones 2+ H Ur Blood (Man) Negative Urine Nitrate Negative Urine Bilirubin Negative Urine Urobilinogen 0.2 Ur Leukocyte Esterase Negative Final Diagnosis (1) Back pain affecting : Code(s): O99.891 - Other specified diseases and conditions complicating ; M54.9 - Dorsalgia, unspecified Status: Acute
== END 2023-06-16 15:00 | disposition home or self-care (01) ==
PROVIDERS: Admitting Provider Obstetrics & Gynecology; PCP Nurse Practitioner Family; Visit Provider Obstetrics & Gynecology
DX: O99.891 Other specified diseases and conditions complicating pregnancy (principal); M54.9 Dorsalgia, unspecified; Z3A.29 29 weeks gestation of pregnancy
CPT/HCPCS: 36415; 80053; 81003; 85025; 87086; 87088; 96374; A9270; G0378; G0379; J2405

== ENCOUNTER 2023-08-05 13:31 | Outpatient (CLI) | payer OTHER, SELFPAY ==
[2023-08-05] VITALS (7 sets, daily range): BP systolic 127–142; BP diastolic 72–91; PULSE 102–109
[2023-08-05 14:17] LABS: Basophils Percent Auto 0.4 % (0.2-1.2); Eosinophils Absolute Auto 0.1 K/mm3 (0-0.3); Eosinophils Percent Auto 0.8 % (0-4.4); Hematocrit 34.2 % (37.0-47.0); Hemoglobin 10.9 g/dL (12.0-15.0); Immature Granulocyte Absolute 0.13 K/mm3 (0.00-0.031); Immature Granulocyte Percent A 1.6 % (0-0.5); Lymphocytes Absolute Auto 1.31 K/mm3 (0.9-3.2); Lymphocytes Percent Auto 15.7 % (18.3-44.2); Mean Corpuscular HGB Conc 31.9 g/dl (32-36); Mean Corpuscular Hemoglobin 28.1 pg (26-34); Mean Corpuscular Volume 88.1 fl (80-100); Mean Platelet Volume 9.5 fl (7.4-10.4); Monocytes Absolute Auto 0.8 K/mm3 (0.1-0.6); Monocytes Percent Auto 9.4 % (2.6-8.5); Neutrophils Percent Auto 72.1 % (45.5-73.1); Platelet Count Result 192 k/mm3 (150-375); Red Blood Count 3.88 M/mm3 (4.2-5.4); Red Cell Distribution Width 13.6 % (11.5-14.5); White Blood Count 8.3 K/mm3 (4.5-10.0)
[2023-08-05 14:29] LABS: Alanine Aminotransferase 14 U/L (6-35); Albumin Level 3.2 g/dL (3.5-5.1); Alkaline Phosphatase 120 U/L (38-126); Anion Gap 2 mmol/L (8-16); Aspartate Amino Transferase 18 U/L (14-36); Bilirubin,Total 0.3 mg/dL (0.2-1.3); Blood Urea Nitrogen 5 mg/dL (7-17); Calcium 8.5 mg/dL (8.4-10.2); Carbon Dioxide 25 mmol/L (22-30); Chloride 107 mmol/L (98-107); Estimated Glomerular Filt Rate > 60; Glucose 83 mg/dL (65-110); Sodium 134 mmol/L (137-145); Uric Acid 3.1 mg/dL (2.5-7.5)
[2023-08-05 14:31] LABS: Total Protein Urine Random 12 mg/dL; Ur Ttl Prot Creatinine Ratio 0.31 mg/mg (0-0.20)
[2023-08-05 14:34] LABS: Appearance Urine Cloudy (Clear); Bacteria Urine None Seen /hpf; Bilirubin Urine Negative (Negative); Blood Urine Negative (Negative); Color Urine Yellow (Yellow); Glucose Urine UA Negative (Negative); Ketones Urine Negative (Negative); Leukocyte Esterase Ur Negative LEU/UL (NEGATIVE); Nitrate Urine Negative (Negative); Non Pathogenic Casts 0-2; Protein Urine Negative (Negative); RBC Urine 0-2 /hpf (0-2); Specific Grav Ur 1.011 (1.001-1.035); Squamous Epithelial Cell Urine Occasional /hpf (Few); WBC Urine 0-5 /hpf (0-3); pH Urine 7.5 (5.0-9.0)
[2023-08-05 14:36] LABS: Add Urine Microscopic? YES
== END 2023-08-05 15:15 | disposition home or self-care (01) ==
LOC: ANHOBOP 13:36 → ANHOBPP 13:37
PROVIDERS: PCP Nurse Practitioner Family; Visit Provider Obstetrics & Gynecology
DX: O13.9 Gestational [pregnancy-induced] hypertension without significant proteinuria, unspecified trimester (principal); Z3A.00 Weeks of gestation of pregnancy not specified
CPT/HCPCS: 36415; 59025; 80053; 81001; 81050; 82570; 84156; 84550; 85025; 87086; 87088; 99199

== ENCOUNTER 2023-08-06 15:13 | Outpatient (CLI) | payer OTHER, SELFPAY ==
[2023-08-06 15:22] VITALS: BMI 40.4
[2023-08-06 17:58] LABS: Total Volume 24 Hour Urine 3475 ml
[2023-08-06 18:01] LABS: Specific Gravity Ur 1.015
[2023-08-06 18:02] LABS: Total Volume 24 Hour Urine 3475 ml
[2023-08-06 18:11] LABS: Total Protein Urine 24 Hr 382 mg/24hr (28-141); Total Protein Urine Random 11 mg/dL
[2023-08-06 18:11] LABS: Creatinine 24 Hour Urine 2.5 gm/24 (0.8-1.8); Creatinine Urine 72.9 mg/dL
== END 2023-08-06 15:14 | disposition home or self-care (01) ==
LOC: ANHOBOP 15:18
PROVIDERS: PCP Nurse Practitioner Family; Visit Provider Obstetrics & Gynecology
DX: Z34.90 Encounter for supervision of normal pregnancy, unspecified, unspecified trimester (principal); Z3A.00 Weeks of gestation of pregnancy not specified
CPT/HCPCS: 81050; 82570; 84156

== ENCOUNTER 2023-08-13 16:30 | Outpatient (CLI) | payer OTHER, SELFPAY ==
[2023-08-13] VITALS (9 sets, daily range): BP systolic 133–148; BP diastolic 79–84; PULSE 101–109
[2023-08-13 17:16] LABS: Basophils Percent Auto 0.3 % (0.2-1.2); Eosinophils Percent Auto 0.3 % (0-4.4); Hematocrit 35.4 % (37.0-47.0); Hemoglobin 11.4 g/dL (12.0-15.0); Immature Granulocyte Absolute 0.15 K/mm3 (0.00-0.031); Immature Granulocyte Percent A 1.6 % (0-0.5); Lymphocytes Absolute Auto 1.28 K/mm3 (0.9-3.2); Lymphocytes Percent Auto 13.6 % (18.3-44.2); Mean Corpuscular HGB Conc 32.2 g/dl (32-36); Mean Corpuscular Hemoglobin 27.9 pg (26-34); Mean Corpuscular Volume 86.6 fl (80-100); Mean Platelet Volume 9.6 fl (7.4-10.4); Monocytes Absolute Auto 0.9 K/mm3 (0.1-0.6); Monocytes Percent Auto 9.1 % (2.6-8.5); Neutrophils Absolute Auto 7.1 K/mm3 (1.3-6.7); Neutrophils Percent Auto 75.1 % (45.5-73.1); Platelet Count Result 210 k/mm3 (150-375); Red Blood Count 4.09 M/mm3 (4.2-5.4); White Blood Count 9.4 K/mm3 (4.5-10.0)
[2023-08-13 17:23] LABS: Appearance Urine Clear (Clear); Bacteria Urine None Seen /hpf; Bilirubin Urine Negative (Negative); Blood Urine Negative (Negative); Color Urine Yellow (Yellow); Glucose Urine UA Negative (Negative); Ketones Urine Trace mg/dL (Negative); Leukocyte Esterase Ur Negative LEU/UL (Negative); Nitrate Urine Negative (Negative); Non Pathogenic Casts 0-2; Protein Urine Trace mg/dL (Negative); RBC Urine 0-2 /hpf (0-2); Specific Grav Ur 1.025 (1.001-1.035); Squamous Epithelial Cell Urine Occasional /hpf (Few); WBC Urine 0-5 /hpf
[2023-08-13 17:24] LABS: Creatinine Urine 164.3 mg/dL; Total Protein Urine Random 10 mg/dL; Ur Ttl Prot Creatinine Ratio 0.06 mg/mg (0-0.20)
[2023-08-13 17:24] LABS: Alanine Aminotransferase 14 U/L (6-35); Albumin Level 3.3 g/dL (3.5-5.1); Alkaline Phosphatase 144 U/L (38-126); Anion Gap 4 mmol/L (8-16); Aspartate Amino Transferase 17 U/L (14-36); Bilirubin,Total 0.4 mg/dL (0.2-1.3); Blood Urea Nitrogen 7 mg/dL (7-17); Calcium 8.5 mg/dL (8.4-10.2); Carbon Dioxide 22 mmol/L (22-30); Chloride 108 mmol/L (98-107); Estimated Glomerular Filt Rate > 60; Glucose 87 mg/dL (65-110); Potassium 3.7 mmol/L (3.4-5.0); Sodium 134 mmol/L (137-145); Uric Acid 3.4 mg/dL (2.5-7.5)
[2023-08-13 17:29] LABS: Add Urine Microscopic? YES
--- NOTE | 2023-08-13 18:43 | PC.NURSE ---
Dr. Yu notified of pt status, instructed to send pt home with education on when to come back to OB department. Keep next schedule appointment and call with any concerns. Pt verbalizes understanding of when to call or come in to OB department.
== END 2023-08-13 18:58 | disposition home or self-care (01) ==
LOC: ANHOBOP 16:36 → ANHOBPP 16:37 → ANHLDR 18:51
PROVIDERS: PCP Nurse Practitioner Family; Visit Provider Obstetrics & Gynecology
DX: O13.9 Gestational [pregnancy-induced] hypertension without significant proteinuria, unspecified trimester (principal); Z3A.00 Weeks of gestation of pregnancy not specified
CPT/HCPCS: 36415; 59025; 80053; 81001; 82570; 84156; 84550; 85025; 99199

== ENCOUNTER 2023-08-17 10:52 | Outpatient (CLI) | payer OTHER, SELFPAY ==
[2023-08-17 11:27] LABS: Hematocrit 37.3 % (37.0-47.0); Hemoglobin 11.7 g/dL (12.0-15.0); Mean Corpuscular HGB Conc 31.4 g/dl (32-36); Mean Corpuscular Hemoglobin 27.8 pg (26-34); Mean Corpuscular Volume 88.6 fl (80-100); Mean Platelet Volume 9.8 fl (7.4-10.4); Platelet Count Result 197 k/mm3 (150-375); Red Blood Count 4.21 M/mm3 (4.2-5.4); Red Cell Distribution Width 14.6 % (11.5-14.5); White Blood Count 8.2 K/mm3 (4.5-10.0)
[2023-08-18 14:26] LABS: Rapid Plasma Reagin Non-Reactive (NonReactive)
== END 2023-08-17 10:53 | disposition home or self-care (01) ==
LOC: ANHLAB 10:54
PROVIDERS: PCP Nurse Practitioner Family; Visit Provider Obstetrics & Gynecology
DX: Z34.93 Encounter for supervision of normal pregnancy, unspecified, third trimester (principal); Z3A.00 Weeks of gestation of pregnancy not specified
CPT/HCPCS: 36415; 85027; 86592; 86850; 86900; 86901

== ENCOUNTER 2023-08-18 05:39 | Inpatient (IN) | payer OTHER, SELFPAY ==
[2023-08-18] VITALS (83 sets, daily range): BP systolic 96–145; BP diastolic 44–93; PULSE 63–118; RESP 12–18; TEMP 36.3–37.1; O2SAT 97–100; BMI 39.5
[2023-08-18] MEDS: LACTATED RINGERS 1,000 ML 125 ML IV CONT ×2 (06:55→07:31)
--- NOTE | 2023-08-18 07:12 | PM.IMHP ---
H&P: HPI History of Present Illness Date/Time: 08/18/23 07:12 Chief Complaint: Term Narrative: 32-year-old female, multiparous, term with previous . We have agreed to repeat delivery. She understands the risk. She understands that injuries may occur as result in hospitalization, more surgery, and severe illness. She understands the risk of hemorrhage and infection. She denies any nausea, vomiting, fever, chills. She denies any chest pain or shortness of breath. Review of Systems Review of Systems: All systems reviewed & are unremarkable except as noted in HPI and below Constitutional: Constitutional: Denies chills, Denies fatigue, Denies fever(s) and Denies weakness Eyes: Eyes: Denies blurry vision, Denies change in vision, Denies loss of peripheral vision, Denies loss of vision, Denies other visual disturbances and Denies eye pain ENT: Denies vertigo, Denies dizziness, Denies hearing loss, Denies mouth pain, Denies nasal obstruction, Denies neck mass and Denies neck pain Cardiovascular: Cardiovascular: Denies chest pain, Denies diaphoresis, Denies syncope, Denies leg edema and Denies dyspnea Respiratory: Respiratory: Denies chest congestion, Denies cough, Denies hemoptysis, Denies dyspnea and Denies wheezing Gastrointestinal: Gastrointestinal: Denies abdominal pain, Denies constipation, Denies diarrhea, Denies nausea and Denies vomiting Genitourinary: Genitourinary: Denies hematuria, Denies change in libido, Denies nocturia, Denies genital lesions, Denies flank pain and Denies urinary urgency Musculoskeletal: Musculoskeletal: Denies abnormal gait, Denies back pain, Denies myalgias, Denies arthralgias, Denies joint swelling, Denies muscle weakness and Denies neck pain Integumentary/Breasts: Skin/Breast: Denies swelling, Denies breast pain, Denies breast mass, Denies dry skin, Denies nipple discharge, Denies unusual bruising and Denies jaundice Neurologic: Denies Neuro-related abnormal movements, Denies Abnormal speech present, Denies abnormal gait, Denies behavioral changes, Denies confusion, Denies vertigo, Denies dizziness, Denies syncope, Denies loss of vision, Denies memory loss, Denies convulsions and Denies weakness Psychiatric: Psychiatric: Denies abnormal sleep pattern, Denies behavioral changes, Denies change in libido, Denies confusion, Denies depression, Denies anhedonia and Denies memory loss Endocrine: Endocrine: Reports no additional endocrine complaints, Denies change in libido and Denies fatigue Hematologic/Lymphatic: Hematologic/Lymphatic: Reports no additional hematologic/lymphatic complaints Allergic/Immunologic: Allergic/Immunologic: Reports no additional allergic/immunologic complaints and Denies wheezing PMFSH Past Medical History Medical History (Updated 08/18/23 @ 07:14 by Patience Yu MD) Gestational diabetes Hypertension affecting UTI (urinary tract infection) Surgical History Surgical History (Updated 08/18/23 @ 07:17 by Patience Yu MD) Previous section x3 Family History Family History (Updated 08/11/23 @ 12:33 by Azeb Almeida RN) Other Unknown family medical history Social History Social History Smoking status: Never smoker Alcohol intake: never Substance use: never Living arrangements: with family Occupation/Education: occupation 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
--- NOTE | 2023-08-18 07:12 | LDADM ---
This patient, Azeb Robledo, was admitted to Labor/Delivery/Recovery 120 on 08/18/23 at 05:39. Plans for surgery/ and pain management were discussed with patient. Patient/family oriented to hospital policies and general routines including ID bracelet, bed and alarms, visiting hours, pain management, procedures, bathroom and other care routines, personal items, smoking policy, room service/diet and guest tray routines, infant security routines, and visiting hours. Patient/Family are encouraged to report perceived risks to care and to ask questions if they do not understand what they are told or what they should do. See OBIX for further documentation.
[2023-08-18 07:16] LABS: Alanine Aminotransferase 14 U/L (6-35); Albumin Level 3.4 g/dL (3.5-5.1); Alkaline Phosphatase 160 U/L (38-126); Anion Gap 6 mmol/L (8-16); Aspartate Amino Transferase 22 U/L (14-36); Bilirubin,Total 0.5 mg/dL (0.2-1.3); Blood Urea Nitrogen 10 mg/dL (7-17); Calcium 8.7 mg/dL (8.4-10.2); Carbon Dioxide 20 mmol/L (22-30); Chloride 108 mmol/L (98-107); Estimated CRCL calculation 191 ml/min; Estimated Glomerular Filt Rate > 60; Glucose 106 mg/dL (65-110); Potassium 3.8 mmol/L (3.4-5.0); Sodium 134 mmol/L (137-145); Uric Acid 3.6 mg/dL (2.5-7.5)
--- NOTE | 2023-08-18 07:20 | WPDANESEPPF ---
Anes - Initial Pre Proc Eval Procedure: Operation Date: 08/18/23 07:30 Proposed Procedures p Repeat Section - Patience Yu MD Date/Time: 08/18/23 07:20 Surgeon: Patience Yu MD Pre Op Diagnosis: C/S Patient Data Age: 32 Gender: F Height: 1.63 m Weight: 104.5 kg Last Vital Signs Temp 36.5 C 08/18/23 06:02 Pulse 100 08/18/23 07:01 BP 127/84 08/18/23 07:01 Pulse Ox 99 08/18/23 07:02 O2 Del Method Room Air 08/18/23 07:03 Allergies Allergy/AdvReac Type Severity Reaction Status Date / Time No Known Allergies Allergy Verified 08/11/23 12:17 Home Medications Medication Instructions Recorded Confirmed Type aspirin 81 mg tablet 81 mg PO DAILY 08/11/23 08/13/23 History ferrous sulfate 325 mg PO DAILY 08/11/23 08/13/23 History vits no.126-ferrous fum 1 tablet PO DAILY 08/11/23 08/13/23 History 28 mg iron-folic acid 800 mcg tablet (Classic ) Laboratory Tests 08/18/23 06:58 Sodium 134 L mmol/L (137-145) Potassium 3.8 mmol/L (3.4-5.0) Chloride 108 H mmol/L (98-107) Carbon Dioxide 20 L mmol/L (22-30) Anion Gap 6 L mmol/L (8-16) BUN 10 mg/dL (7-17) Creatinine 0.40 L mg/dL (0.7-1.0) Estim Creat Clear Calc 191 ml/min Estimated GFR > 60 (59 - ) Glucose 106 mg/dL (65-110) Uric Acid 3.6 mg/dL (2.5-7.5) Calcium 8.7 mg/dL (8.4-10.2) Total Bilirubin 0.5 mg/dL (0.2-1.3) AST 22 U/L (14-36) ALT 14 U/L (6-35) Alkaline Phosphatase 160 H U/L (38-126) Total Protein 7.0 g/dL (6.3-8.2) Albumin 3.4 L g/dL (3.5-5.1) Patient hx anesthesia problems: none Family hx anesthesia problems: none Results Review: All pre-operative results and documents have been reviewed as part of the pre-operative evaluation. 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 Informed Consent: The patient's anesthetic plan and its attendant risks and benefits were discussed with the patient/family/POA. Questions were solicited and answers provided to the satisfaction of the patient/family/POA.
[2023-08-18] MEDS: ceFAZolin 2 GM/D5W 50 ML 2 GM/50 ML BAG IVPB (07:35)
[2023-08-18] MEDS: KETOROLAC 30 MG/ML VIAL (*BKC) 15 MG IV PUSH (08:37)
--- NOTE | 2023-08-18 08:46 | SUR.PHASEI ---
300 ml remains in IV of 1000 LR with 40 units Pitocin.
--- NOTE | 2023-08-18 08:59 | P.OP_ITS ---
Procedure Note - Detailed Date of Procedure 08/18/23 Pre-op Diagnosis Previous delivery, preeclampsia, term gestation Post-op Diagnosis Same Procedure Performed Low-transverse section Surgeon Patience Yu MD Anesthesia Spinal Findings Normal gestational maternal anatomy, average size infant, normal Apgars. Description of Procedure The patient was taken the operating room. She was prepped and draped in dorsal supine position with a leftward tilt. This was done after spinal anesthetic was applied. A low-transverse skin incision was made and carried down till of the fascia with the knife. The fascial incision was made with the knife. The fascial incision was extended laterally with Kellogg scissors. The fascia was tented upward superiorly and inferiorly the rectus muscles were dissected off bluntly. The rectus muscles were the midline. The preperitoneal fat and peritoneum were dissected open bluntly at the superior aspect of the rectus muscles. The peritoneal incision was extended superior and inferior with good position of bladder. The uterine incision was made with a scalpel down to the level of the amniotic cavity. The amniotic cavity was entered bluntly. The was delivered. The cord was clamped and cut and the infant was handed off to waiting pediatric staff. Cord bloods were obtained. The placenta was removed manually. The uterus was exteriorized. The uterus was cleared of all clots, debris and membranes. The uterus was closed in 0 Vicryl running lock fashion. An imbricating over a was placed along the incision line as well. The uterus was returned to the abdomen. The gutters were cleared of all clots and debris. The fascia was closed with 0 Vicryl running fashion. The subcutaneous tissue was irrigated pinpoint bleeders were cauterized. The skin was closed with subcuticular absorbable joanna. The skin incision line was covered with glue. The patient tolerated the procedure well. She has taken recovery room in stable condition. Sponge lap and needle counts w ere correct x2. Urine Output -125.0 Complications No immediate complications Condition Stable Disposition PACU
[2023-08-18] MEDS: MORPHINE SULFATE INJ (*CRX) 10 MG/ML AMP 3 MG IV PUSH ×3 (09:16→10:39)
[2023-08-18] MEDS: OXYTOCIN 30 UNITS/NS 500 ML 30 UNITS/500 ML BAG 125 UNITS IV CONT (09:45)
[2023-08-18] MEDS: miSOPROStol 200 MCG TABLET 1000 MCG RECTAL (10:15)
[2023-08-18] MEDS: DEXTROSE 5%/0.45% SOD CHL 1,000 ML 125 ML IV CONT (13:48)
--- NOTE | 2023-08-18 15:24 | PC.NURSE ---
1430 - Primary RN reported that pumping had been initiated related to separation with .
[2023-08-18] MEDS: KETOROLAC 30 MG/ML VIAL (*BKC) IV PUSH (16:00)
--- NOTE | 2023-08-18 16:42 | PC.NURSE ---
1330 Mother pumped due to separation from infant. in level 2 nursery due to resp.distress and monitoring.
[2023-08-18] MEDS: HYDROcodone/acetaminophen (*CRX) 5-325 MG TABLET 1 TAB PO (20:05)
[2023-08-18] MEDS: KCL 20 MEQ/D5/0.45% SOD CHL 1,000 ML 125 ML IV CONT (22:16)
[2023-08-19] MEDS: IBUPROFEN 600 MG TABLET PO ×3 (01:00→16:15)
[2023-08-19] MEDS: HYDROcodone/acetaminophen (*CRX) 5-325 MG TABLET 1 TAB PO ×3 (01:00→19:16)
[2023-08-19 05:30] VITALS: BP 122/62; PULSE 91; RESP 16; TEMP 36.2
[2023-08-19] MEDS: HYDROcodone/acetaminophen (*CRX) 10-325 MG TABLET 1 TAB PO ×3 (05:36→11:56)
[2023-08-19 06:07] LABS: Basophils Percent Auto 0.3 % (0.2-1.2); Eosinophils Absolute Auto 0.1 K/mm3 (0-0.3); Eosinophils Percent Auto 1.1 % (0-4.4); Hematocrit 29.1 % (37.0-47.0); Hemoglobin 9.1 g/dL (12.0-15.0); Immature Granulocyte Absolute 0.07 K/mm3 (0.00-0.031); Immature Granulocyte Percent A 0.9 % (0-0.5); Lymphocytes Absolute Auto 1.31 K/mm3 (0.9-3.2); Lymphocytes Percent Auto 16.6 % (18.3-44.2); Mean Corpuscular HGB Conc 31.3 g/dl (32-36); Mean Corpuscular Hemoglobin 27.7 pg (26-34); Mean Corpuscular Volume 88.7 fl (80-100); Mean Platelet Volume 9.8 fl (7.4-10.4); Monocytes Absolute Auto 0.6 K/mm3 (0.1-0.6); Monocytes Percent Auto 7.9 % (2.6-8.5); Neutrophils Absolute Auto 5.8 K/mm3 (1.3-6.7); Neutrophils Percent Auto 73.2 % (45.5-73.1); Platelet Count Result 172 k/mm3 (150-375); Red Blood Count 3.28 M/mm3 (4.2-5.4); Red Cell Distribution Width 14.6 % (11.5-14.5); White Blood Count 7.9 K/mm3 (4.5-10.0)
--- NOTE | 2023-08-19 08:15 | PM.OBPNVD ---
OB - PN: Subj Subjective Date/time seen: 08/19/23 08:15 Interval history: pp day 1 from repeat section baby on D10, doing well pain managed flatus present OB - PN: Obj Data Labs 08/19/23 05:28 08/18/23 06:58 Labs: Laboratory Results - last 24 hr 08/19/23 05:28 WBC 7.9 RBC 3.28 L Hgb 9.1 L Hct 29.1 L MCV 88.7 MCH 27.7 MCHC 31.3 L RDW 14.6 H Plt Count 172 MPV 9.8 Immature Gran % (Auto) 0.9 H Neut % (Auto) 73.2 H Lymph % (Auto) 16.6 L [place] % (Auto) 7.9 Eos % (Auto) 1.1 Baso % (Auto) 0.3 Lymph # (Auto) 1.31 [place] # (Auto) 0.6 Eos # (Auto) 0.1 Baso # (Auto) 0.0 Abs Immat Gran (auto) 0.07 H Absolute Neuts (auto) 5.8 Absolute Nucleated RBC 0.0 Nucleated RBC % 0.0 OB - PN A/P Plan day: 1 Time Spent With Patient Time: Total time spent is greater than 50% in coordination of care (as documented) at patient's floor/unit and/or counseling patient: Review of Systems Review of Systems: All systems reviewed & are unremarkable except as noted in HPI and below Exam Const: General: cooperative, healthy appearing and comfortable Resp: Effort & Inspection: normal respiratory effort Cardio: Rate: regular rate Rhythm: regular rhythm GI: Other: incision CDI Skin: General skin exam: normal color Neuro: General: patient oriented x3
[2023-08-19 08:45] VITALS: BP 119/69; PULSE 93; RESP 18; TEMP 36.9; O2SAT 100
[2023-08-19] MEDS: SIMETHICONE 80 MG TAB.CHEW PO ×4 (09:00→19:16)
[2023-08-19] MEDS: MULTIVIT/MIN/PREN/FOL AC/IRON TABLET 1 TAB PO (09:00)
[2023-08-19] MEDS: DOCUSATE SODIUM 100 MG CAPSULE PO ×2 (09:00→16:16)
--- NOTE | 2023-08-19 09:07 | WPDANLDPN2 ---
Anes-Prog Note L&D Date/Time: 08/19/23 09:07 Comfortable throughout: section Neuraxial method: spinal Epidural/Spinal procedure site: clean & non-tender Neuro status: Neuro function grossly intact. Cardiovascular status: normal Respiratory status: normal Airway patency: baseline Mental status: baseline Post-Op hydration status: normal Vital Signs: Last Vital Signs Temp 97.2 F L 08/19/23 05:30 Pulse 91 08/19/23 05:30 Resp 16 08/19/23 05:30 BP 122/62 08/19/23 05:30 Pulse Ox 97 08/18/23 16:00 O2 Del Method Room Air 08/18/23 10:45 Pain score (VAS): 0/10 I/O: Intake & Output 08/18/23 08/19/23 08/19/23 23:59 07:59 15:59 Intake Total 2700 500 Output Total 575 1000 Balance 2125 -500 Post-procedural complaints: none Patient feedback: Patient satisfied with anesthetic care.
--- NOTE | 2023-08-19 09:07 | WPDANLDNPN2 ---
Anes-Prog Note L&D-Neuraxial Date/Time: 08/19/23 09:07 Neuraxial medications: intrathecal PF morphine Opiod-related complaints: none Patient feedback: Patient satisfied with post-operative pain management.
[2023-08-19] MEDS: POLYSACCHARIDE IRON COMPLEX 150 MG CAPSULE PO ×2 (10:00→16:16)
[2023-08-19 12:40] VITALS: BP 134/76; PULSE 99; RESP 18; TEMP 37.2; O2SAT 100
--- NOTE | 2023-08-19 13:26 | PC.NURSE ---
[id number] Introductions were made, then consulted with patient to assess needs related to . Mother led the conversation with her?plans to feed?her infant, bottle feeding related to the fear that her baby wasn't getting enough being fussy and the?experience so far. Resources provided for inpatient and outpatient services with the feeding sheet, mom/baby guide and name written on the white board. Mother states she is independently her without pain, she sees swallowing and believes everything is going okay. RN has checked the infant's blood sugar and it is 81mg/dl. We discussed the importance of protecting her milk supply with pumping when infant doesn't latch or receives a bottle. Breast pump provided prior to meeting LC due to separation with . Instructions given on cleaning, care, usage, that there should be no pain, pumping schedule for milk production, collection, and storage of human milk. Parents are encouraged to record pumping schedule on the feeding sheet. Mother denies pain with pumping and instructed to pump for comfort and nipple stretching/stimulation for adequate milk production every 3 hours (8 times in 24 hours) 1-2 times at night even if there's no milk seen. Mother voiced understanding of the education shared along with mom and baby guide for additional resource information. Reported to the primary RN. 1325 - requested to assist. On arrival the Primary RN is messing with the 's IV that is infusing D10.
[2023-08-19 16:15] VITALS: BP 136/82; PULSE 96; RESP 16; TEMP 37; O2SAT 100
[2023-08-19 20:31] VITALS: BP 121/77; PULSE 92; RESP 12; TEMP 36.7; O2SAT 97
[2023-08-20] MEDS: SIMETHICONE 80 MG TAB.CHEW PO (02:40)
[2023-08-20] MEDS: IBUPROFEN 600 MG TABLET PO ×3 (02:40→16:50)
[2023-08-20] MEDS: HYDROcodone/acetaminophen (*CRX) 5-325 MG TABLET 1 TAB PO (02:40)
[2023-08-20 04:00] VITALS: BP 155/72; PULSE 94; RESP 16; TEMP 36.7
[2023-08-20 07:40] VITALS: BP 136/77; PULSE 94; RESP 20; TEMP 36.4; O2SAT 100
--- NOTE | 2023-08-20 09:00 | PM.OBPNVD ---
OB - PN: Subj Subjective Date/time seen: 08/20/23 09:00 Interval history: pp day 2 from repeat section baby working on weight management pain managed flatus present OB - PN: Obj Data Labs 08/19/23 05:28 08/18/23 06:58 OB - PN A/P Plan day: 2 Plan: routine care Time Spent With Patient Time: Total time spent is greater than 50% in coordination of care (as documented) at patient's floor/unit and/or counseling patient: Review of Systems Review of Systems: All systems reviewed & are unremarkable except as noted in HPI and below Exam Const: General: cooperative, healthy appearing and comfortable Resp: Effort & Inspection: normal respiratory effort Cardio: Rate: regular rate GI: Other: incision CDI Skin: General skin exam: normal color Neuro: General: patient oriented x3
[2023-08-20] MEDS: DOCUSATE SODIUM 100 MG CAPSULE PO ×2 (09:03→16:50)
[2023-08-20] MEDS: POLYSACCHARIDE IRON COMPLEX 150 MG CAPSULE PO ×2 (09:03→16:50)
[2023-08-20] MEDS: MULTIVIT/MIN/PREN/FOL AC/IRON TABLET 1 TAB PO (09:03)
[2023-08-20] MEDS: HYDROcodone/acetaminophen (*CRX) 10-325 MG TABLET 1 TAB PO ×3 (09:08→16:51)
[2023-08-20 12:13] VITALS: BP 124/75; PULSE 97; RESP 16; TEMP 37.2; O2SAT 99
--- NOTE | 2023-08-20 14:41 | PC.NURSE ---
0940 Introductions were made, then consulted with patient to assess needs related to . Mother led the conversation with her?plans to feed?her and the?experience so far. Mother works well with her with encouragement and education. Encouraged understanding of the benefits of skin to skin (demonstrating unwrapping and placing upright on her chest), stimulating with massage touch, changing positions to encourage wakefulness, how to watch for early feeding cues, responsive feeding, feeding on demand (aiming for 8-12 times in 24 hours, about every 2-3 hours), milk production, building/maintaining a milk supply, duration of feeding, signs of adequate intake/output and how to record on the feeding sheet. Reviewed positioning and ear, shoulder, hip alignment, supporting the breast to facilitate a deep latch, asymmetrical latch (off-center), leading with the chin with a big, open, wide gape and body close to mother. Infant latched optimally to the both breasts in football position. Education given to mother of how to visualize suck/swallow ratios and listen for drinking at the breast. was [able/unable] to maintain latch without discomfort to mother. Nipple care reviewed with optimal latch and good positioning. Reminding mother of comfort measures of healing with a warm and wet washcloth to rinse breast, then leave open to air-dry as needed. Reviewed good handwashing when or touching the breast/nipples to prevent infection. Resources used to facilitate learning were used with the [visual handouts and mom and baby guide]. Mother voiced understanding of skin to skin, stimulating with massage touch, responsive feedings, hand expressed colostrum, talking to infant to encourage if it has been 2 -2.5 hours since the start of the last , to call if does not latch, or if there is discomfort with . Resources provided for inpatient/outpatient with business card, feeding sheet and the mom/baby guide. Parents voiced understanding of information, demonstrated learning and will call if there is a request for assistance. Reported to primary RN.
[2023-08-20 19:05] VITALS: BP 123/77; PULSE 89; RESP 16; TEMP 36.8
[2023-08-21] MEDS: HYDROcodone/acetaminophen (*CRX) 10-325 MG TABLET 1 TAB PO ×2 (00:06→06:49)
[2023-08-21] MEDS: IBUPROFEN 600 MG TABLET PO ×2 (00:06→06:50)
[2023-08-21 03:00] VITALS: BP 119/75; PULSE 82; RESP 16; TEMP 36.7
[2023-08-21] MEDS: DOCUSATE SODIUM 100 MG CAPSULE PO (06:49)
[2023-08-21] MEDS: POLYSACCHARIDE IRON COMPLEX 150 MG CAPSULE PO (06:50)
[2023-08-21] MEDS: MULTIVIT/MIN/PREN/FOL AC/IRON TABLET 1 TAB PO (06:50)
--- NOTE | 2023-08-21 07:51 | PM.OBPNVD ---
OB - PN: Subj Subjective Date/time seen: 08/21/23 07:51 Interval history: pp day 3 from repeat section baby doing well pain managed flatus present OB - PN: Obj Data Labs 08/19/23 05:28 08/18/23 06:58 OB - PN A/P Plan day: 3 Plan: routine care and discharge home Time Spent With Patient Time: Total time spent is greater than 50% in coordination of care (as documented) at patient's floor/unit and/or counseling patient: Review of Systems Review of Systems: All systems reviewed & are unremarkable except as noted in HPI and below Exam Const: General: cooperative and healthy appearing Resp: Effort & Inspection: normal respiratory effort Cardio: Rate: regular rate GI: Other: incision CDI Neuro: General: patient oriented x3 Extrem: Right lower extremity: normal to inspection Left lower extremity: normal to inspection
--- NOTE | 2023-08-21 07:53 | PM.OBDSVD ---
DS: Admitting Diagnosis Discharge Date 08/21/23 Admitting Diagnosis repeat section DS: Discharge Diagnosis Discharge Diagnosis (1) Previous section: Code(s): Z98.891 - History of uterine scar from previous surgery Status: Acute OB - DS: Summary OB Procedures : None OB Procedures Intrapartum: OB Procedures: : None Peripartum Data Procedures: Procedures Operation Date: 08/18/23 07:30 Actual Procedure Side Surgeon p Repeat Section Not Applicable Patience Yu MD Time Spent with Patient Time attestation: Total time spent providing and/or coordinating discharge services: DS: Data Data Completed and Pending Completed studies during hospitalization: Pending at discharge 08/18/23 08:12 Surgical [PTH] Routine Discharge Plan Discharge Attending physician on discharge: Patience Yu Discharging Clinician: Pura Langston Patient Disposition: Home, Self-Care Activity: pelvic rest Diet: regular Patient Instructions: Antibiotic Form Stand Alone Forms: General Discharge Information Follow-up/Referrals: Patience Yu MD [Physician] - 1 Week Discharge Medications: New hydrocodone-acetaminophen 5-325 mg Tablet 1 tablet PO Q3H PRN (Reason: Moderate Pain (4-6)) Qty: 20 0RF ibuprofen 600 mg Tablet 600 mg PO Q6H PRN (Reason: Cramping) Qty: 30 0RF Continued Classic 28 mg iron- 800 mcg Tablet 1 tablet PO DAILY ferrous sulfate 325 mg PO DAILY Discontinued Adult Aspirin 81 mg Tablet 81 mg PO DAILY Date of admission: 08/18/23 05:39 Primary Care Provider: All,Cuca Dos Santos Admitting Provider: Patience Yu Attending physician on admission: Patience Yu Condition: Stable
[2023-08-21 08:40] VITALS: BP 124/66; PULSE 99; RESP 16; TEMP 36.8; O2SAT 100
[2023-08-24 10:44] VITALS: BP 145/87; PULSE 90; RESP 18; TEMP 36.6; O2SAT 98
== END 2023-08-21 12:00 | disposition home or self-care (01) | DRG 540 ==
LOC: ANHLDR 05:43 → ANHOB2 12:19
PROVIDERS: Admitting Provider Obstetrics & Gynecology; PCP Nurse Practitioner Family; Visit Provider Obstetrics & Gynecology
PROC: 10D00Z1 Extraction of Products of Conception, Low, Open Approach (ICD-10-PCS; CPT 59514; principal; 2023-08-18 07:30)
DX: O34.219 Maternal care for unspecified type scar from previous cesarean delivery (principal); O14.94 Unspecified pre-eclampsia, complicating childbirth; O24.429 Gestational diabetes mellitus in childbirth, unspecified control; O40.3XX0 Polyhydramnios, third trimester, not applicable or unspecified; Z3A.37 37 weeks gestation of pregnancy; Z37.0 Single live birth; Z86.16 Personal history of COVID-19
CPT/HCPCS: 36415; 80053; 84550; 85025; 88307; A9270; J0690; J1885; J2270; J2405; J2590; J3480; J7120

== ENCOUNTER 2024-03-17 08:49 | Emergency (ER) | payer OTHER, SELFPAY ==
[2024-03-17 09:01] VITALS: BP 139/79; PULSE 76; RESP 16; TEMP 36.9; O2SAT 99
--- NOTE | 2024-03-17 09:18 | ED.FEMALEGU ---
HPI - Female Genitourinary General Chief complaint: Urogenital-Female Stated complaint: uti symptoms Source: patient and RN notes reviewed Mode of arrival: ambulatory Limitations: no limitations History of Present Illness HPI Narrative: 33 y/o female presented for c/o thin vaginal discharge and fishy odor for about one week. Denies concern for std, no change in partner of 16 years. Used otc AZO Yeast and monistat cream without much improvement. Denies hematuria, nausea, vomiting, abdominal pain, flank pain, constipation, diarrhea, fevers or chills. LMP 15. Related Data Allergies Allergy/AdvReac Type Severity Reaction Status Date / Time No Known Allergies Allergy Verified 03/17/24 09:08 Review of Systems Review of Systems: CONSTITUTIONAL: Denies body aches, fever, chills, or sweats. CARDIOVASCULAR: Denies chest pain, palpitations, or edema. RESPIRATORY: Denies cough or dyspnea. GASTROINTESTINAL: Denies abdominal pain, nausea, vomiting, or diarrhea. GENITOURINARY: Reports vaginal discharge and odor; denies dysuria, frequency, urgency, hematuria, flank pain SKIN: Denies rash, itching, or wounds. MUSCULOSKELETAL: Denies back pain or myalgia. [facility] Past Medical History Medical History Gestational diabetes Hypertension affecting UTI (urinary tract infection) Surgical History Surgical History Previous section x3 Family History Family History Other Unknown family medical history Social History Social History Smoking packs per day: 0.5 Smoking cigarettes per day: 10.0 Years smoked: 0.5 Smoking pack-years: 0.25 Smoking status: Former smoker Second hand tobacco smoke exposure: Yes Alcohol intake: never Substance use: never Lack of Transportation: No Lack of Food: Never True Current Housing: I Have Housing Concerned About Future Housing: No Difficulty Paying Gas/Electric Bills: No Difficulty Paying for Meds: No Currently Unemployed: No Education: High School Diploma/GED Difficulty w/ Childcare or Family Care: No Living arrangements: with family Occupation/Education: occupation 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 Please see nursing chart for further information. There is no relevant family history pertinent to the presenting complaint Exam Narrative: GENERAL: Well-appearing and in no acute distress. ENT: Mucous membranes pink and moist. NECK: Normal AROM. Supple. CHEST: No respiratory distress. Clear to auscultation. HEART: Regular rate and rhythm. ABDOMEN: Soft, nontender, nondistended, normal active bowel sounds. No CVA tenderness SKIN: Warm, dry, no rash. NEURO: No focal deficits. Alert and oriented x3. Gait steady. PSYCH: Normal affect. Course Course Emergency Course: Patient is aware of diagnosis, understands and agrees to treatment plan. Anticipatory guidance given. Patient agrees to follow-up as directed and is aware of reasons to seek care at the emergency department. Portions of this record may have been created with voice recognition software Level of Care: Express Care Visit Vital Signs Vital signs: Vital Signs Temperature 98.5 F 03/17/24 09:01 Pulse Rate 76 03/17/24 09:01 Respiratory Rate 16 03/17/24 09:01 Blood Pressure 139/79 03/17/24 09:01 Pulse Oximetry 99 03/17/24 09:01 Oxygen Delivery Room Air 03/17/24 09:01 Temperature 98.5 F 03/17/24 09:01 Pulse Rate 76 03/17/24 09:01 Respiratory Rate 16
== END 2024-03-17 09:27 | disposition home or self-care (01) ==
PROVIDERS: Emergency Provider Nurse Practitioner Family
DX: N89.8 Other specified noninflammatory disorders of vagina (principal); Z87.891 Personal history of nicotine dependence
CPT/HCPCS: 99213; G0463

== ENCOUNTER 2024-06-16 18:41 | Emergency (ER) | payer OTHER, SELFPAY ==
--- NOTE | 2024-06-16 18:56 | ED.DENTAL ---
HPI - Dental/Oral General Chief complaint: Dental/Oral Stated complaint: tooth pain Time Seen by Provider: 06/16/24 18:56 Source: patient Mode of arrival: ambulatory Limitations: no limitations History of Present Illness HPI Narrative: Azeb is a 33-year-old female patient presenting to the clinic today with complaints of left upper dental pain for the past several weeks however over the last few days it has gotten worse. Reports that new parts of the tooth have broken off when she was eating. No fever or chills. Has a dental appointment next month. Related Data Allergies Allergy/AdvReac Type Severity Reaction Status Date / Time No Known Allergies Allergy Verified 03/17/24 09:08 Review of Systems Review of Systems: Pertinent positives per HPI. Patient denies any fever, chills, rash, headache, visual changes, dizziness, cough, runny nose, sore throat, shortness of breath, chest pain, palpitations, nausea, vomiting, diarrhea, constipation, abdominal pain, or any urinary issues. PMFSH Past Medical History Medical History Gestational diabetes Hypertension affecting UTI (urinary tract infection) Surgical History Surgical History Previous section x3 Family History Family History Other Unknown family medical history Social History Social History Smoking packs per day: 0.5 Smoking cigarettes per day: 10.0 Years smoked: 0.5 Smoking pack-years: 0.25 Smoking status: Former smoker Second hand tobacco smoke exposure: Yes Alcohol intake: never Substance use: never Lack of Transportation: No Lack of Food: Never True Current Housing: I Have Housing Concerned About Future Housing: No Difficulty Paying Gas/Electric Bills: No Difficulty Paying for Meds: No Currently Unemployed: No Education: High School Diploma/GED Difficulty w/ Childcare or Family Care: No Living arrangements: with family Occupation/Education: occupation 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 There is no relevant family history pertinent to the patient complaint. Exam Narrative: General: Well-developed, well nourished, in no apparent distress Head: Normocephalic, atraumatic Eyes: Pupils equally round and reactive to light bilaterally, EOM intact, sclera and conjunctive clear, no discharge, lids normal Ears: TMs intact and clear, ear canals clear, no drainage, grossly hearing normal. Nose: Nares patent, no discharge, no inflammation, no sinus tenderness. Mouth: Oropharynx without lesions or masses, poor dentition, broken decayed tooth number 16, MMM. Neck: Supple, trachea midline, no enlargement of anterior or posterior cervical nodes, no thyroid masses or goiter palpable. Cardio: Regular rate and rhythm, s1 and s2 normal, no murmur appreciated. Resp: Clear to auscultation bilaterally anteriorly and posteriorly, no rhonchi, rales, wheezing or rubs Course Course Emergency Course: Portions of this record may have been created with voice recognition software. Level of Care: Express Care Visit Vital Signs Vital signs: Vital signs reviewed MDM - Dental/Oral MDM Narrative Medical decision making narrative: At the time of visit patient is resting comfortably on the exam table. Patient appears to be nontoxic. Plan: I suspect patient has a broken 16. tooth with decay and gingival swelling. Will place on amoxicillin. Have patient follow-up with her dentist as soon as possible. Supportive measures w
[2024-06-16 19:01] VITALS: BP 136/83; PULSE 64; RESP 18; TEMP 36.6; O2SAT 100
== END 2024-06-16 19:09 | disposition home or self-care (01) ==
PROVIDERS: Emergency Provider Nurse Practitioner Family
DX: K08.89 Other specified disorders of teeth and supporting structures (principal); Z87.891 Personal history of nicotine dependence
CPT/HCPCS: 99213; G0463

== ENCOUNTER 2025-06-24 19:09 | Emergency (ER) | payer OTHER, SELFPAY ==
--- OUTSIDE RECORDS SUMMARY | 2014-08-03 05:48 | XMS_ITS | Continuity of Care Document ---
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 Name Role Phone Anthony SINGH, En Unavailable Unavailable Allergies, Adverse Reactions, Alerts Substance Reaction Status Criticality No Known Allergies Active No Inform ation Procedures Procedure Date OFFICE/OUTPATIENT VISIT, EST OFFICE/OUTPATIENT VISIT, EST PREV VISIT, NEW, AGE 18-39 Advance Directives Directive Yes / No Effective Date File Name No Information Encounters Encounter Description Practice Location Reason(s) For Visit Diagnoses Date Provider Providers Copied on Encounter [facility], [address], [place], [place], [id number], [place] tel:[phone] [facility] No Information 4 Anthony Gatica. [address], [place], [place], [address] , [place]. tel:[phone] Referring Provider: En Cruz, [address] [facility] [address], [place], [place], [id number]. tel:[phone] OFFICE/OUTPA TIENT VISIT, EST [facility], [address], [place], [place], [id number], [place] tel:[phone] [facility] abdominal pain (chief complaint) Dietary surveillance and counselingAbdominal Pain 4 Anthony Gatica. [address], [place], [place], [address] , [place]. tel:[phone] Referring Provider: En Cruz, [address] [facility] [address], [place], [place], [id number]. tel:[phone] OFFICE/OUTPA TIENT VISIT, EST [facility], [address], [place], [place], [id number], [place] tel:[phone] [facility] Medicine LFT (chief complaint) HTN (chief complaint) Dietary surveillance and counselingUnspecifi ed chronic liver disease without mention of alcoholHypertension , Unspecified 4 Anthony Gatica. [address], [place], [place], [address] , [place]. tel:[phone] Referring Provider: Breezy Russ [address], [place], [place], [id number]. tel:[phone] PREV VISIT, NEW, AGE 18-39 [facility], [address], [place], [place], [id number], [place] tel:[phone] [facility] Medicine Physical (chief complaint) Dietary surveillance and counselingRoutine Medical ExamRoutine Medical Exam 4 Anthony Gatica. [address], [place], [place], [address] , [place]. tel:[phone] Family History Family Member Type Diagnosis Age At Onset Sister Problem (finding) Alive and well Father Problem (finding) Alive and well Mother Problem (finding) Alive and well Payers Payer name Insurance type Covered republican ID Authoriza tion(s) No Information Social History Type Description Quantity Date Captured Comments Sex Female Smoking Status No Information Chief Complaint And Reason For Visit No Information Plan Of Treatment Date Type Action Status Referral Ordered: CT ABD & PELVIS W/O CONTRAST ordered Referral Ordered: US EXAM, ABDOM, COMPLETE ordered History Of Present Illness Encounter Date Complaint History Of Prese nt Illness No Information Instructions Date Instruction Additional Infor mation Decrease caloric intake Related to Dietary surveillance counseling Dietary counseling Related to Di etary surveillance counseling Decrease caloric intake Related to Dietary surveillance counseling Dietary counseling Related to Di etary surveillance counseling Decrease caloric intake Related to Dietary surveillance counseling Dietary counseling Related to Di etary surveillance counseling Assessments Type Assessment Date No Information
--- OUTSIDE RECORDS SUMMARY | 2014-08-03 05:48 | XMS_ITS | Continuity of Care Document ---
Author Organization 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 [address], [place], [place], [address] , [place]. tel:[phone] Referring Provider: En Cruz, [address] [facility] [address], [place], [place], [id number]. tel:[phone] OFFICE/OUTPA TIENT VISIT, EST [facility], [address], [place], [place], [address], [place] tel:[phone] [facility] abdominal pain (chief complaint) Dietary surveillance and counselingAbdominal Pain 4 Anthony Gatica. [address], [place], [place], [address] , [place]. tel:[phone] Referring Provider: En Cruz, [address] [facility] [address], [place], [place], [id number]. tel:[phone] OFFICE/OUTPA TIENT VISIT, EST [facility], [address], [place], [place], [id number], [place] tel:[phone] [facility] Medicine LFT (chief complaint) HTN (chief complaint) Dietary surveillance and counselingUnspecifi ed chronic liver disease without mention of alcoholHypertension , Unspecified 4 Anthony Gatica. [address], [place], [place], [address] , [place]. tel:[phone] Referring Provider: Breezy Russ [address], [place], [place], [address]. tel:[phone] PREV VISIT, NEW, AGE 18-39 [facility], [address], [place], [place], [id number], [place] tel:[phone] [facility] Medicine Physical (chief complaint) Dietary surveillance and counselingRoutine Medical ExamRoutine Medical Exam 4 Anthony Gatica. [address], [place], [place], [address] , [place]. tel:[phone] Family History Family Member Type Diagnosis Age At Onset Sister Problem (finding) Alive and well Father Problem (finding) Alive and well Mother Problem (finding) Alive and well Payers Payer name Insurance type Covered constitution party ID Authoriza tion(s) No Information Social History [...] Information Instructions Date Instruction Additional Infor mation Dietary counseling Related to Di etary surveillance counseling Decrease caloric intake Related to Dietary surveillance counseling Dietary counseling Related to Di etary surveillance counseling Decrease caloric intake Related to Dietary surveillance counseling Dietary counseling Related to Di etary surveillance counseling Decrease caloric intake Related to Dietary surveillance counseling Assessments Type Assessment Date No Information
--- OUTSIDE RECORDS SUMMARY | 2025-06-24 19:12 | XMS_ITS | Clinical Summary ---
Author Organization [facility] Address [address] [place] [address] Care Team Providers Care Cosmetic Counselor Name Role Phone All, Cuca English APRN-EMPLOYEE BENEFITS MANAGER Primary Care Provider Source Comments [facility],non-owned Affiliates and Associated Physician Practices is amultiple site organization consisting of ambulatory clinics and hospital sitesin [place], [place], [place] and [place]. This disclosure is being madepursuant to the Care Everywhere program and may not contain all information available regarding this patient. Last updated 18.[employer] Allergies No known active allergies Medications * Be aware that medications may not be up to date on this document. Alwaysverify current medications with the patient. No known medications Active Problems Problem Noted Date Diagnosed Date Vaginitis 11/06/2022 Irregular periods 11/06/2022 Furuncle 11/06/2022 Cyst of ovary 11/06/2022 Unexplained weight loss 02/20/2021 Essential hypertension 02/10/2017 Immunizations Immunization Administration Dates Next Due DT (AGE 0-7) 07/21/1995 DTP, HISTORIC VACCINE 04/19/1992,10/05/1991,04/1990,04/01/1990 HEP A PEDS 2 DOSE 06/09/2005 HEP B VACCINE, PED/ADOL 06/09/2005,06/05/1999, HIB VACCINE 10/05/1991 MMR VACCINE 07/21/1995,10/05/1991,09/25/1991 POLIO OPV 07/21/1995, 2,10/05/1991,09/24/1990,04/01/19 90 TD (AGE 7-ADULT) 06/09/2005 TDAP, HISTORIC VACCINE 12/04/2018,10/19/2014 Social History Tobacco Use Types Packs/Day Years Used Date Smoking Tobacco: Every Day Cigarettes Smokeless Tobacco: Never Tobacco Cessation:Ready to Q uit: No; Counseling Given: Yes Alcohol Use Standard Drinks/Week Comments Never 0 (1 standard drink = 0.6 oz pur e alcohol) PHQ-2 Answer Date Recorded PHQ2 TOTAL SCORE 0 11/06/2022 Comments No Sex and Gender Information Value Date Recorded Sex Assigned at Not on file Legal Sex Female 5:34 AM COMMUNITY RECREATION PROGRAMMER Gender Identity Not on file Sexual Orientation Not on file Last Filed Vital Signs Vital Sign Reading Time Taken Comments Blood Pressure 120/76 11/06/2022 2:22 PM COMMUNITY RECREATION PROGRAMMER Pulse 93 11/06/2022 2:22 PM COMMUNITY RECREATION PROGRAMMER Temperature 36.4 C (97.5 F) 11/06/2022 2:22 PM COMMUNITY RECREATION PROGRAMMER Respiratory Rate 17 11/06/2022 2:22 PM COMMUNITY RECREATION PROGRAMMER Oxygen Saturation 100% 11/06/2022 2:22 PM COMMUNITY RECREATION PROGRAMMER Inhaled Oxygen Concentration - - Weight 72.6 kg (160 lb) 11/06/2022 2:22 PM COMMUNITY RECREATION PROGRAMMER Height 162.6 cm (5' 4) 11/06/2022 2:22 PM COMMUNITY RECREATION PROGRAMMER Body Mass Index 27.46 11/06/2022 2:22 PM COMMUNITY RECREATION PROGRAMMER Plan of Treatment Health Maintenance Due Date Last Done Comments HIV SCREENING 2004 HEPATITIS C SCREENING 10/05/2007 PNEUMOCOCCAL VACCINE (1 of 2 - PCV) 2008 PAP SMEAR 2010 HPV VACCINE (1 - 3-dose SCDM series) 2016 DEPRESSION SCREENING 10/19/2024 11/06/2022 COVID-19 VACCINE ( - season) 2025 INFLUENZA VACCINE (#1) 2025 DTAP/TDAP/TD VACCINES (9 - Td or Tdap) 12/04/2028 12/04/2018, 10/19/2014, 06/09/2005, Additional history exists ZOSTER VACCINE (1 of 2) 2039 HIB VACCINE Completed 10/05/1991 HEPATITIS B VACCINE Completed 06/09/2005, 06/05/1999, 11/02/1998 MENINGOCOCCAL (Group B) VACCINE SHARED DECISION-MAKING Aged Out No longer eligible based on patient's age to complete this topic MENINGOCOCCAL GROUPS A/C/Y/W VACCINE Aged Out No longer eligible based on patient's age to complete this topic Insurance [facility] Care Teams Cosmetic Counselor Relationship Specialty Start Date End Date Cuca Carrizales, FIELD INSTALLER-EMPLOYEE BENEFITS MANAGER [address] [place] [address] PCP - General Nurse Practitioner Family 11/06/22
[2025-06-24 19:14] VITALS: BP 147/77; PULSE 70; RESP 18; TEMP 36.5; O2SAT 99
--- NOTE | 2025-06-24 19:16 | ED.GENADULT ---
HPI - General Adult General Chief complaint: Ear Stated complaint: LT Ear Pain Time Seen by Provider: 06/24/25 19:17 Source: patient Mode of arrival: ambulatory Limitations: no limitations History of Present Illness HPI narrative: 4-year-old female patient presents to [facility] complaints of left ear pain times 2-3 days. Patient denies fevers body aches or chills. Patient states she has been taking Tylenol for the pain which has helped ease the pain. Patient states that the left ear does hurt when she swallows but denies any sore throat Related Data Allergies Allergy/AdvReac Type Severity Reaction Status Date / Time No Known Allergies Allergy Verified 06/24/25 19:11 Review of Systems Review of Systems: CONSTITUTIONAL: Denies fever, chills, or sweats. EYES: Denies visual changes, redness, or discharge. ENT: Denies rhinorrhea, congestion, sore throat, positive left otalgia. CARDIOVASCULAR: Denies chest pain, palpitations, or edema. RESPIRATORY: Denies cough or dyspnea. GASTROINTESTINAL: Denies abdominal pain, nausea, vomiting, or diarrhea. GENITOURINARY: Denies dysuria or hematuria. SKIN: Denies rash or itching. MUSCULOSKELETAL: Denies back pain, joint pain, or myalgia. NEUROLOGIC: Denies headache, numbness, or weakness. PSYCHIATRIC: Denies anxiety or depression. [facility] Past Medical History Medical History UTI (urinary tract infection) Gestational diabetes Hypertension affecting Surgical History Surgical History Previous section x3 Family History Family History Other Unknown family medical history Social History Social History Smoking packs per day: 0.5 Smoking cigarettes per day: 10.0 Years smoked: 0.5 Smoking pack-years: 0.25 Smoking status: Former smoker Second hand tobacco smoke exposure: Yes Alcohol intake: never Substance use: never Lack of Transportation: No Lack of Food: Never True Current Housing: I Have Housing Concerned About Future Housing: No Difficulty Paying Gas/Electric Bills: No Difficulty Paying for Meds: No Currently Unemployed: No Education: High School Diploma/GED Difficulty w/ Childcare or Family Care: No Living arrangements: with family Occupation/Education: occupation 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 There is no relevant family history pertinent to the presenting complaint. Exam Narrative: GENERAL: Well-appearing, well-nourished, and in no acute distress. HEAD: Normocephalic, atraumatic. EYES: PERRLA and EOMI. ENT: Nares clear, no rhinorrhea or epistaxis. Mucous membranes moist. posterior pharynx with no erythema, tonsillar enlargement, exudates or lesions present. There is some fluid what appears to be some yellow pus noted behind the left tympanic membrane on exam. NECK: Supple. No lymphadenopathy CHEST: Clear to auscultation. No respiratory distress. HEART: Regular rate and rhythm. No murmur heard. Normal peripheral pulses. ABDOMEN: Soft, nontender, nondistended, normal active bowel sounds. EXTREMITIES: Normal range of motion. No edema. SKIN: Warm, dry, no rash. NEURO: No focal deficits. Alert and oriented x3. Course Course Level of Care: Express Care Visit Vital Signs Vital signs: Vital Signs Temperature 36.5 C 06/24/25 19:14 Pulse Rate 70 06/24/25 19:14 Respiratory Rate 18 06/24/25 19:14 Blood Pressure 147/77 H 06/24/25 19:14 Pulse Oximetry 99 06/24/25 19:14 Oxygen Delivery Room Air 06/24/25 19:14 Temperature 36.5 C 06/24/25 19:14 Pulse Rate 70 06/24/25 19:14 Respiratory Rate 18 06/24/25 19:14 Blood Pressure 147/77 H 06/24/25 19:14 Pulse Oximetry 99 06/24/25 19:14 Oxygen Delivery Room Air 06/24/25 19:14 vital signs reviewed. The patient has been informed that they may have pre-hypertension or Hypertension based on a BP reading in the department. I recommend that the patient call the primary care provider listed on their discharge instructions or a physician of their choice this week to arrange follow up for further evaluation of possible pre-hypertension or Hypertension Medical Decision Making MDM Narrative Medical decision making narrative: Plan care for patient is discharge home with oral antibiotics for an ear infection. Discussed with patient she should continue taking Tylenol ibuprofen as needed for pain. Patient verbalized understanding denies any other questions or concerns at this time. Differential Diagnosis Differential Diagnosis: Differential diagnosis: Otitis media, otitis externa, perforated TM, infection of the outer ear, foreign body or cerumen impaction, ruptured TM, acute mastoiditis, ligament otitis externa, dehydration, pneumonia, sepsis, dental or intraoral infection, TMJ dysfunction Vital Signs Vital Signs: Vital Signs Temperature 36.5 C 06/24/25 19:14 Pulse Rate 70 06/24/25 19:14 Respiratory Rate 18 06/24/25 19:14 Blood Pressure 147/77 H 06/24/25 19:14 Pulse Oximetry 99 06/24/25 19:14 Oxygen Delivery Room Air 06/24/25 19:14 Temperature 36.5 C 06/24/25 19:14 Pulse Rate 70 06/24/25 19:14 Respiratory Rate 18 06/24/25 19:14 Blood Pressure 147/77 H 06/24/25 19:14 Pulse Oximetry 99 06/24/25 19:14 Oxygen Delivery Room Air 06/24/25 19:14 Critical Care Time Critical Care Time Critical Care Time: No Discharge Plan Discharge Clinical Impression: Acute left otitis media Patient Disposition: Home Condition: Stable Instructions: Antibiotic Form, Ear Infection (GEN) Additional Instructions: An ear infection is also called otitis media. An ear infection may be caused by blocked or swollen eustachian tubes. Eustachian tubes connect the middle ear to the back of the nose and throat. They drain fluid from the middle ear. With an ear infection, fluid builds up and is infected by germs. The germs grow easily in fluid trapped behind the eardrum. DISCHARGE INSTRUCTIONS: Call 911 or have someone call 911 for the following: You have a seizure. Return to the emergency department if: You have a fever and a stiff neck. Contact your healthcare provider if: Your ear pain gets worse or does not go away, even after treatment. The outside of your ear is red or swollen. You are vomiting or have diarrhea. You have fluid coming from your ear. You have questions or concerns about your condition or care. Medicines: Acetaminophen decreases pain and fever. It is available without a doctor's order. Ask how much to take and how often to take it. Follow directions. Read the labels of all other medicines you are using to see if they also contain acetaminophen, or ask your doctor or pharmacist. Acetaminophen can cause liver damage if not taken correctly. Do not use more than 4 grams (4,000 milligrams) total of acetaminophen in one day. NSAIDs , such as ibuprofen, help decrease swelling, pain, and fever. This medicine is available with or without a doctor's order. NSAIDs can cause stomach bleeding or kidney problems in certain people. If you take blood thinner medicine, always ask your healthcare provider if NSAIDs are safe for you. Always read the medicine label and follow directions. Ear drops help treat your ear pain. Antibiotics help treat a bacterial infection that caused your ear infection. Take your medicine as directed. Contact your healthcare provider if you think your medicine is not helping or if you have side effects. Tell him or her if you are allergic to any medicine. Keep a list of the medicines, vitamins, and herbs you take. Include the amounts, and when and why you take them. Bring the list or the pill bottles to follow-up visits. Carry your medicine list with you in case of an emergency. Prevent an ear infection: Wash your hands often. Use soap and water. Wash your hands after you use the bathroom, change a child's diapers, or sneeze. Wash your hands before you prepare or eat food. Handwashing Stay away from people who are ill. Some germs are easily and quickly spread through contact. Patient Language: Czech Prescriptions: New amoxicillin-pot clavulanate 875-125 mg tablet 1 tablet PO Q12H 7 Days Qty: 14 0RF Follow-up/Referrals: Nito,Sheridan Buck, BIOMEDICAL EQUIPMENT SUPPORT SPECIALIST [Primary Care Provider, Unknown] Time of Disposition: 19:25
== END 2025-06-24 19:26 | disposition home or self-care (01) ==
PROVIDERS: Emergency Provider Nurse Practitioner Family
DX: H66.92 Otitis media, unspecified, left ear (principal); Z87.891 Personal history of nicotine dependence
CPT/HCPCS: 99213; G0463

== ENCOUNTER 2025-10-02 16:03 | Emergency (ER) | payer OTHER, SELFPAY ==
--- NOTE | 2025-10-02 16:09 | ED_ITS ---
HPI - URI/Sore Throat General Chief Complaint: Upper Respiratory Infection Stated Complaint: URI Time Seen by Provider: 10/02/25 16:18 Source: patient and RN notes reviewed Mode of arrival: ambulatory Limitations: no limitations History of Present Illness HPI Narrative: 34-year-old female presents concern for 2 and half week history of productive cough, runny nose, stuffy nose, chest discomfort with coughing, headache. Reports she was taking [id number] medication with some relief, she thought she was getting better but then it came back. MD elicited complaint: cough and nasal congestion Related Data Allergies Allergy/AdvReac Type Severity Reaction Status Date / Time No Known Allergies Allergy Verified 10/02/25 16:12 Review of Systems Review of Systems: CONSTITUTIONAL: Denies malaise, chills, sweats, or fever. EYES: Denies visual changes, redness, or discharge. ENT: Reports rhinorrhea, congestion, sinus pain CARDIOVASCULAR: Denies chest pain, palpitations, or edema. RESPIRATORY: Reports productive cough. Denies dyspnea. GASTROINTESTINAL: Denies abdominal pain, nausea, vomiting, diarrhea SKIN: Denies rash or itching. MUSCULOSKELETAL: Denies myalgia. NEUROLOGIC: Denies headache. All systems reviewed & are unremarkable except as noted in HPI and below PMFSH Past Medical History Medical History UTI (urinary tract infection) Gestational diabetes Hypertension affecting Surgical History Surgical History Previous section x3 Family History Family History Other Unknown family medical history Social History Social History Smoking packs per day: 0.5 Smoking cigarettes per day: 10.0 Years smoked: 0.5 Smoking pack-years: 0.25 Smoking status: Former smoker Second hand tobacco smoke exposure: Yes Alcohol intake: never Substance use: never Lack of Transportation: No Lack of Food: Never True Current Housing: I Have Housing Concerned About Future Housing: No Difficulty Paying Gas/Electric Bills: No Difficulty Paying for Meds: No Currently Unemployed: No Education: High School Diploma/GED Difficulty w/ Childcare or Family Care: No Living arrangements: with family Occupation/Education: occupation 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 There is no relevant family history pertinent to the presenting complaint Exam Narrative: GENERAL: Well-appearing, well-nourished, and in no acute distress. HEAD: Normocephalic EYES: PERRLA, conjunctivae clear ENT: Nares clear, turbinates edematous and erythematous. Mucous membranes moist. TM pearly londono with sharp light reflex bilaterally; no tragal tenderness. Oropharynx not erythematous without lesions. Tonsils not enlarged and without exudate, no drooling, no hoarseness, no trismus, uvula midline. NECK: Supple. No lymphadenopathy CHEST: Clear to auscultation, breath sounds equal. No wheezing, rhonchi, rales, or stridor. No respiratory distress, speaks in full sentences. HEART: Regular rate and rhythm. No murmur heard. SKIN: Warm, dry, no rash. NEURO: Alert and oriented x3. PSYCH: Normal mood and affect Course Course Emergency Course: Patient is aware of diagnosis, understands and agrees to treatment plan. Anticipatory guidance given. Patient agrees to follow-up as directed and is aware of reasons to seek care at the emergency department. Portions of this record may have been created with voice recognition software Level of Care: [facility] Visit MDM Differential Diagnosis Differential Diagnosis: I evaluated this patient in the [facility]. History is obtained from patient who is an independent historian and physical exam was performed.? Available medical records were reviewed. ? Exam findings and relevant testing show no acute concerns or changes; patient is non-toxic appearing and is in no distress. ? Differential diagnosis considered: Balbuena virus, strep pharyngitis, allergic rhinitis, upper respiratory tract infection, sinusitis, rhinosinusitis, nasopharyngitis. viral pharyngitis, otitis media, otitis externa, pneumonia, bronchitis, viral cough syndrome, viral syndrome, and influenza. Differential diagnosis and treatment plan were discussed with the patient. Patient agrees with discussion and after shared medical decision making agrees with plan of care. All questions were answered to the patient's satisfaction. Patient is appropriate for outpatient treatment and follow-up. Discharge Plan Discharge Clinical Impression: Sinobronchitis Patient Disposition: Home Condition: Stable Instructions: Antibiotic Form, Sinusitis (ED), Acute Bronchitis (ED) Additional Instructions: Take medication as prescribed Recommend antihistamine such as Benadryl at night time and Zyrtec or Iraida during the day Cough syrup may cause drowsiness; avoid driving or take it at night time. Also, recommend symptomatic treatment includes: rest, fluids, and increase humidity of the air at home. Recommend Acetaminophen as directed on the bottle to reduce fever, pain, headache. Avoid smoking/second-hand smoke. Please schedule a follow-up visit with your personal physician for further evaluation and treatment within 3-5days. Including recheck and discussion of your blood pressure. If your symptoms persist, change or worsen significantly before you can contact your personal physician then please, without delay, go to the emergency department for further evaluation. Patient Language: Ukrainian Prescriptions: New methylprednisolone [Medrol (Percy)] 4 mg tablets,dose pack See Rx Instructions .ROUTE .COMPLEX Qty: 21 0RF Rx Instructions: orally per package directions amoxicillin-pot clavulanate 875-125 mg tablet 1 tablet PO Q12H 10 Days Qty: 20 0RF promethazine-DM 6.25-15 mg/5 mL syrup 5 ml PO Q4-6H PRN (Reason: cough) Qty: 120 0RF Follow-up/Referrals: Nito,Sheridan Buck, INDUSTRIAL RELATIONS MANAGER [Primary Care Provider, Unknown] Stand Alone Forms: Work/School Release IP Time of Disposition: 16:24
[2025-10-02 16:11] VITALS: BP 137/86; PULSE 102; RESP 16; TEMP 36.5; O2SAT 98
--- OUTSIDE RECORDS SUMMARY | 2025-10-02 18:08 | XMS_ITS | Data Portability ---
Author Organization [facility] [employer], Main Office Address [address] [place] [address] Assessment No assessment recorded. Plan of Treatment Reminders Order Date Submit Date Provider Last Modified By Organization Details Last Modified Time Details Appointments None recorded. Lab pap, IG + HR HPV 2024 025 [facility], [address] [place], [address], 17:05:18 bacterial vaginosis + vaginitis panel, vaginal 2024 025 [facility], [address] [place], [address], 09:20:36 pap, IG + HR HPV 2023 024 [facility], [address] [place], [address], 4 13:20:17 bacterial vaginosis + vaginitis panel, vaginal 2023 024 [facility], [address] [address] Cam, [address], [address], 10:33:19 bacterial vaginosis + vaginitis panel, vaginal 2023 024 [facility], [address] [place], [address], 10:23:58 Referral None recorded. Procedures None recorded. Surgeries None recorded. Imaging None recorded. Medication Orders lisinopril 10 mg tablet 2023 024 [id number], [address], [place], [id number], 16:19:13 Patient TargetsNo targets recorded. Patient InstructionsNo instructions recorded. Reason for Referral None Reported. Results Created Date Observation Date Name Description Value Unit Range Abnormal Flag Note LastModifiedBy Organization Detail LastModifiedTime 07/02/2007/02/2021 urina lysis , dipst ick Leukocytes (reference range: negative rogelio/ l) Negati ve Not Available [facility]_[address], [address], 07/02/2021 16:48:39 07/02/20 21 07/02/2021 urina lysis , dipst ick Nitrite (reference rage: negative mg/dl) negati ve Not Available [facility] [address] [place] [address], [address], 07/02/2021 16:48:39 07/02/20 21 07/02/2021 urina lysis , dipst ick Urobilinogen (reference range: 0.2-1 mg/dl) 0.[address] [facility]_[address], [address], 07/02/2021 16:48:39 07/02/20 21 07/02/2021 urina lysis , dipst ick Protein (reference range: negative mg/dl) Negati ve Not Available [facility], [address], 07/02/2021 16:48:39 07/02/20 21 07/02/2021 urina lysis , dipst ick pH (reference range: 5-7) 7.0 Not Available [facility], [address], 07/02/2021 16:48:39 07/02/20 21 07/02/2021 urina lysis , dipst ick Blood (reference range: negative Nathan/ l) Negati ve Not Available [address], [address], 07/02/2021 16:48:39 07/02/20 21 07/02/2021 urina lysis , dipst ick Specific Gonzales (reference range: 1.005-1.030) 1.010 Not Available [address], [address], 07/02/2021 16:48:39 07/02/20 21 07/02/2021 urina lysis , dipst ick Ketone (reference range: negative mg/dl) Negati ve Not Available [address], [address], 07/02/2021 16:48:39 07/02/2007/02/2021 urina lysis , dipst ick Bilirubin (reference range: negative mg/dl) Negati ve Not Available [address], [address], 07/02/2021 16:48:39 07/02/2007/02/2021 urina lysis , dipst ick Glucose (reference range: negative mg/dl) Negati ve Not Available [address], [address], 07/02/2021 16:48:39 07/02/20 21 07/02/2021 urina lysis , dipst ick Appearance Clear Not Available [address], [address], 07/02/2021 16:48:39 07/02/20 21 07/02/2021 urina lysis , dipst ick Color Pale Yellow Not Available [facility] [address] [place], [address], 07/02/2021 16:48:39 07/02/20 21 07/05/2021 BACTE RIAL VAGIN OSIS, REBECCA atopobium vaginae high - 2 score abnormal Not Available [facility] (Lab) [address] [place], [address], 07/05/2021 22:07:00 07/02/20 21 07/05/2021 BACTE RIAL VAGIN OSIS, REBECCA bvab 2 high - 2 score abnormal Not Available [facility] (Lab) [address] [place], [address], 07/05/2021 22:07:00 07/02/20 21 07/05/2021 BACTE RIAL VAGIN OSIS, REBECCA megasphaera 1 high - 2 score abnormal . Calcu late total score by eva boyce the 3 indiv idual bacte rial vagin osis (BV) marke r score s toget her. Total score is inter prete d as follo ws: Total score 0-1: Indic ates the absen ce of BV. Total score 2: Indet ermin ate for BV. Addit ional clini tata data shoul d be evalu ated to estab andrea a diagn osis. Total score 3-6: Indic ates the prese nce of BV. . This test was devel oped and its perfo rmanc e clinton cteri stics deter mined by [facility]. It has not been clear ed or appro karl by the Food and Drug Admin istra tion. Perfo rmed at: =G - [facility] [address] , [place] [address] Lab Direc tor: Carlyn samayoa MD, Phone : [phone] Not Available [facility] (Lab) [address] [place], [address], 07/05/2021 22:07:00 11/26/19 22 11/27/2021 B-HCG TOTAL , QUANT ITATI VE human chorionic gonadotropin <2.39 mIU/m L 0.00-4 .82 WEEKS OF PREGN SUSY REFER ENCE RANGE S 4 420 TO 6,230 5 620 TO 29,30 0 6 3,660 TO 108,0 00 7 10,90 0 TO 148,0 00 8 30,70 0 TO 184,0 00 9 67,20 0 TO 169,0 00 10 30,00 0 TO 167,0 00 14 15,00 0 TO 92,10 0 15 10,60 0 TO 64,20 0 16 9,000 TO 52,80 0 17 6,700 TO 47,10 0 18 6,100 TO 42,10 0 19 6,800 TO 42,90 0 Not Available [facility] (Lab) [address] [place], [address], 11/27/2021 15:03:06 06/08/20 23 06/08/2023 US, doppl er, venou s No observ ation record ed. [email or web address] [address], [place], [address], 06/10/2023 08:01:51 Result Notes None recorded. Problems Name Problem SNOMED Code Status Onset Date Resolution Date Notes Provider Name and Address Organization Details Recorded Time Vaginitis 06873506 Active Not Available [facility] 3 09:18:23 Furuncle 126538593 Active Not Available [facility] 3 09:18:23 Cyst of ovary 43512786 Active per pt Not Available [facility] 3 09:18:23 Irregular periods 87782595 Active Not Available [facility] 3 09:18:23 Essential hypertension 06488109 Active 2016 Not Available [facility] 3 09:18:23 Unexplained weight loss 132621637 Active 2020 Not Available [facility] 3 09:18:23 Bacterial vaginosis 380915465 Active 2023 Sheridan MendozaLIBRA solano [address] [facility], [facility] [address], [place], [address] , [facility] [employer] [facility] 4 08:32:10 Candidiasis of vagina 97753500 Active 2024 Sheridan MendozaLIBRA solano [address] [facility], [facility] [address], [place], [address] , [facility] [employer] [facility] 5 18:15:15 Problem Notes None recorded. Procedures Surgical History Date Name Laterality Status Provider Name and Address Organization Details Recorded Time 5 Date of Last Pap Smear completed Cuca Love RN [facility] 07/28/2025 16:22:55 7 Abcess Removal completed Not Available [facility] 12/17/2022 09:13:33 9 delivery completed Not Available [facility] 12/17/2022 09:13:33 7 delivery completed Not Available [facility] 12/17/2022 09:13:33 Imaging Results None recorded. Procedure Notes None recorded. Medical Equipment None Reported. Allergies No known drug allergies Medications Name Sig Start Date Stop Date Status Note LastModified by Organization Details LastModified Time nifedipine ER 30 mg tablet,exte nded release 24 hr TAKE 1 TABLET BY MOUTH EVERY DAY 06/15 completed Not Available Not Available Not Available amoxicillin 500 mg capsule TAKE 1 CAPSULE BY MOUTH EVERY 12 HOURS FOR 10 DAYS 06/15 completed Not Available Not Available Not Available clindamycin HCl 300 mg capsule TK 1 C PO Q 6 HOURS. STOP IF DH BEGINS 10/30 completed Not Available Not Available Not Available fluconazole 150 mg tablet Take 1 tablet every week by oral route as directed for 84 days. 2024 active Not Available Not Available Not Avai lable hydrocodone 5 mg-acetamin ophen 325 mg tablet TAKE 1 TABLET BY MOUTH EVERY 3 HOURS NEEDED 06/15 completed Not Available Not Available Not Available FreeStyle Lancets 28 gauge active Not Available Not Available Not Available phenazopyri dine 200 mg tablet TK 1 T PO TID FOR 6 DOSES PRN P 10/30 completed Not Available Not Available Not Available metronidazo le 0.75 % (37.5 mg/5 gram) vaginal gel INSERT 1 APPLICATO RFUL VAGINALLY EVERY DAY AT BEDTIME FOR 5 DAYS 06/15 completed Not Available Not Available Not Available penicillin V potassium 500 mg tablet TK 1 T PO Q 12 H 10/30 completed Not Available Not Available Not Available metronidazo le 500 mg tablet TAKE 1 TABLET BY MOUTH TWICE DAILY FOR 7 DAYS DIRECTED 07/12 completed Not Available Not Available Not Available acetaminoph en 300 mg-codeine 30 mg tablet active Not Available Not Available Not Available ciprofloxac in 500 mg tablet Take 1 tablet every 12 hours by oral route for 7 days. 02/10 completed Not Available Not Available Not Available sulfamethox azole 800 mg-trimetho prim 160 mg tablet TK 1 T PO Q 12 H 10/30 completed Not Available Not Available Not Available hydrocodone 10 mg-acetamin ophen 325 mg tablet TK 1 TO 2 TS PO Q 4 TO 6 H PRN P 6 OR HIGHER ON PAIN SCALE 10/30 completed Not Available Not Available Not Available tramadol 50 mg tablet TK 1 T PO Q 6 H PRN 10/30 completed Not Available Not Available Not Available Bactroban 2 % topical cream APPLY A SMALL AMOUNT TO THE AFFECTED AREA on chest BY TOPICAL ROUTE 3 TIMES PER DAY FOR 10 DAYS 02/10 completed Not Available Not Available Not Available amoxicillin 875 mg tablet TAKE 1 TABLET BY MOUTH TWICE DAILY 07/12 completed Not Available Not Available Not Available famotidine 20 mg tablet TK ONE T PO QD. 10/30 completed Not Available Not Available Not Available betamethaso ne valerate 0.1 % topical cream active Not Available Not Available Not Available hydrocodone 7.5 mg-acetamin ophen 325 mg tablet active Not Available Not Available No t Available cephalexin 500 mg capsule TK 1 C PO Q 12 H FOR 7 DAYS 10/30 completed Not Available Not Available Not Available nystatin 100,000 unit/gram topical cream APPLY TO THE AFFECTED AREA(S) on chest BY TOPICAL ROUTE 2 TIMES PER DAY for 10 days or until gone active Not Available Not Available No t Available lisinopril 10 mg tablet TAKE 1 TABLET BY MOUTH EVERY DAY DIRECTED 07/28 completed Not Available Not Available Not Available progesteron e micronized 200 mg capsule TK 2 CS PO QD FOR 10 DAYS 10/30 completed Not Available Not Available Not Available alcohol swabs 10/30 completed Not Available Not Available Not Available mupirocin 2 % topical ointment 02/10 completed Not Available Not Available Not Available ibuprofen 600 mg tablet TAKE 1 TABLET BY MOUTH EVERY 6 HOURS NEEDED FOR CRAMPING 06/15 completed Not Available Not Available Not Available Vitamin D2 1,250 mcg (50,000 unit) capsule active Not Available Not Available Not Available ondansetron 4 mg disintegrat ing tablet DISSOLVE 1 TABLET ON THE TONGUE EVERY 6 HOURS NEEDED FOR NAUSEA 06/15 completed Not Available Not Available Not Available medroxyprog esterone 150 mg/mL intramuscul ar suspension ADM 1 ML IM Q 3 MONTHS 10/30 completed Not Available Not Available Not Available doxycycline hyclate 100 mg tablet Take 1 tablet twice a day by oral route for 20 days. active Not Available Not Available No t Available Bactroban Nasal 2 % ointment apply to wound on chest tid for 7-10 days 02/10 completed Not Available Not Available Not Available amoxicillin 875 mg-potassiu m clavulanate 125 mg tablet TAKE 1 TABLET BY MOUTH EVERY 12 HOURS FOR 7 DAYS 07/25 completed Not Available Not Available Not Available medroxyprog esterone 150 mg/mL intramuscul ar syringe ADM 1 ML IM Q 3 MONTHS 10/30 completed Not Available Not Available Not Available Yadira 0.35 mg tablet TK 1 T PO D active Not Available Not Available No t Available nitrofurant oin monohydrate /macrocryst als 100 mg capsule TAKE 1 CAPSULE BY MOUTH EVERY 12 HOURS FOR ACUTE OPIOID THERAPY DAYS active Not Available Not Available No t Available FreeStyle Lite Meter kit active Not Available Not Available Not Available Antiseptic Skin Cleanser (chlorhexid ine) 4 % liquid Apply by topical route to chest folds daily 02/10 completed Not Available Not Available Not Available OneTouch Verio test strips 06/15 completed Not Available Not Available Not Available Advocate Lancet 30 gauge 10/30 completed Not Available Not Available Not Available OneTouch Verio Flex Meter 06/15 completed Not Available Not Available Not Available Vitals Date Recorded Body mass index (BMI) Body height Body weight Provider Name and Address Organization Details Last Updated DateTime 11/26/2021 33.3 kg/m2 165.1 cm 41118.47 g Not Available [employer] [facility] 12/17/2022 09:17:43 Date Recorded Body weight Body mass index (BMI) Body height Body temperature Respiratory rate Heart rate Oxygen saturation Pain severity - 0-10 verbal numeric rating [Score] - Reported Systolic And Diastolic Provider Name and Address Organization Details Last Updated DateTime 4 94572.1 2 g 34.5 kg/m2 162.56 cm 97.9 [degF] 20 /min 77 /min 96 % 0 147/88 mm[Hg] TOOTIE Haro [facility] [employer] 4 09:14:18 Date Recorded Body mass index (BMI) Body height Oxygen saturation Heart rate Body temperature Body weight Systolic And Diastolic Provider Name and Address Organization Details Last Updated DateTime 1 32.3 kg/m2 165.1 cm 98 % 84 /min 98 [degF] 15393.9 2 g 138/78 mm[Hg] Not Available [facility] 3 09:17:38 Date Recorded Body height Body mass index (BMI) Body weight Body temperature Respiratory rate Pain severity - 0-10 verbal numeric rating [Score] - Reported Heart rate Systolic And Diastolic Provider Name and Address Organization Details Last Updated DateTime 4 162.56 cm 34.7 kg/m2 86805.0 1 g 97.5 [degF] 20 /min 0 82 /min 147/104 mm[Hg] Cuca Love RN [facility] [employer] 4 16:00:26 Date Recorded Body weight Body mass index (BMI) Body height Body temperature Heart rate Respiratory rate Oxygen saturation Pain severity - 0-10 verbal numeric rating [Score] - Reported Systolic And Diastolic Provider Name and Address Organization Details Last Updated DateTime 5 32129.7 8 g 35.4 kg/m2 162.56 cm 97.7 [degF] 77 /min 20 /min 97 % 0 152/102 mm[Hg] TOOTIE Haro [facility] [employer] 5 16:21:58 Social History Question Answer Notes LastModified by Organizat ion Details LastModified Time Tobacco Smoking Status Never Smoker Not Available [facility] 12/17/2022 09:13:26 Do You Have An Advance Directive? No Information not available 06/15/2024 Is Blood Transfusion Acceptable In An Emergency? Yes Information not available 06/15/2024 What Is Your Level Of Caffeine Consumption? Moderate [id number] Information not available 12/17/2022 What Is Your Code Status? Full Code Information not available 06/15/2024 In The 14 Days Before Symptom Onset, Have You Had Close Contact With A Laboratory-confir med COVID-19 While That Case Was Ill? No Information not available 06/15/2024 In The 14 Days Before Symptom Onset, Have You Had Close Contact With A Person Who Is Under Investigation For COVID-19 While That Person Was Ill? No Information not available 06/15/2024 What Type Of Diet Are You Following? REGULAR [id number] Information not available 12/17/2022 What Is The Highest Grade Or Level Of School You Have Completed Or The Highest Degree You Have Received? [id number] [id number] Information not available 12/17/2022 Have There Been Any Changes To Your Family Or Social Situation? No Information no t available 06/15/2024 Are There Any Guns Present In Your Home? No Information not available 06/15/2024 Do You Use Insect Repellent Routinely? No [id number] Information not available 12/17/2022 Where [facility] You Live? [facility] Information not available 06/15/2024 Do You Have A Medical Power Of Pencil Maker? No Information not available 06/15/2024 How Many Children Do You Have? 5 Information not available 06/15/2024 Do You Have Any Pets? No Information not available 06/15/2024 What Is Your Relationship Status? Single [id number] Information not available 12/17/2022 Do You Use Your Seat Belt Or Car Seat Routinely? Yes [id number] Information not available 12/17/2022 Do You Have Smoke And Carbon Monoxide Detectors In Your Home? No Information not available 06/15/2024 Are You Passively Exposed To Smoke? No [id number] Information not available 12/17/2022 Are There Any Smokers In Your House? No [id number] Information not available 12/17/2022 Do You Participate In Social Media? Yes [id number] Information not available 12/17/2022 Do You Use Sunscreen Routinely? No [id number] Information not available 12/17/2022 Have You Recently Traveled Abroad? No Information not available 06/15/2024 Are You Currently In School? Yes [id number] Information not available 12/17/2022 Do You Have Any Dietary Restrictions? No [id number] Information not available 12/17/2022 Sex: Female Functional Status Question Answer Note LastModified by Organizat ion Details LastModified Time Do you use any illicit or recreational drugs? No She says no, but I smell the MJ on her Information not available 07/28/2025 What is your level of alcohol consumption? Occasional Information not available 06/15/2024 Are you currently employed? 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 Occasional [id number] Information not available 12/17/2022 Mental Status Question Answer Note LastModified by Organization D etails LastModified Time Do you feel stressed (tense, restless, nervous, or anxious, or unable to sleep at night)? [id number] Information not available 07/12/2024 Family History Relationship Description Onset Age of this Age Resolved Age Notes LastModified by Organization Details LastModified Time Father No current problems or disability Not available 06/15 09:10:21 Mother No current problems or disability Not available 06/15 09:10:21 Medical History Condition Response OBESITY Y SKIN PROBLEMS Y FEMALE PROBLEMS / INFECTIONS Y HYPERTENSION Y Gynecological History Statement/Question Response Abnormal Pap N Flow Heavy Date of LMP 07/17/2025 STIs/STDs N Date of Last Pap 10/19/2015 Duration of Flow (days) 7 Age at Menarche 13 Most Recent Mammogram How many live births 2 Date of Last Colonoscopy Frequency of Cycle (Q days) 28 Most Recent Bone Density Menses Monthly N Date of Last Pap Smear 07/28/2025 Obstetrics History GPAL:G 2 P 2 0 0 2 Type Value Full Term 2 Living 2 Total 2 Immunizations Vaccine Type Date Status Note Provider Nam e and Address Organization Details Recorded Time Tdap 10/19/2014 completed Not Available [facility] 12/17/2022 09:23:13 Past Encounters Encounter ID Performer Location Encounter Start Date Encounter Closed Date Diagnosis/Indication Diagnosis SNOMED-CT Code Diagnosis ICD10 Code Diagnosis IMO Codes Diagnosis Note [id number] José Manuel Michel MD [address] [address] 02/20/2021 00:00:00 02/20/2021 12:15:16 [id number] José Manuel Michel MD [address] [address] 02/21/2021 00:00:00 02/21/2021 12:51:54 [id number] José Manuel Michel MD [address] [address] 07/02/2021 00:00:00 07/02/2021 18:17:01 [id number] José Manuel Michel MD [address] [address] 11/26/2021 00:00:00 11/26/2021 11:02:11 [id number] José Manuel Michel MD [address] [address] 06/15/2024 09:00:17 06/15/2024 09:40:05 Gynecologic examination 87141904 Z01.419 Educated on importance of self breast exam, advised to perform once per month on same day of her cycle [id number] José Manuel Michel MD [address] [address] 07/12/2024 15:44:05 07/12/2024 16:11:40 Essential hypertension 86148953 I10 [id number] José Manuel Michel MD [facility] [address] [address] 07/28/2025 16:10:06 07/28/2025 16:47:59 Gynecologic examination 97069317 Z01.419 Overall healthyDis cussed vaginal hygiene and safe sex practicesD iscussed monthly self breast examsPatie nt questions answered Health Concerns Section Related Observation LastModified by Organization Detai ls LastModified Time None Recorded Concern Status LastModified by Organization Details LastModified Time None Recorded Advance Directives Directive N: Payers Insurance Date Sequence Insurance Name Policy Number Policy Cagle Covered Member ID Cagle Member ID Guarantor Name 07/31/2025 1 [facility] - DOS ON OR AFTER 21 (MEDICAID REPLACEMENT - HMO) Azeb Robledo [id number] Azeb Robledo Notes Date Note Type Note Provider Name and Address Organization Details Recorded Time 4 text/html Pap/PelvicReported by PatientHPIFor context, patient reportsappt for screening pap/pelvic/breast exam. For associated factors, patient reportsno risk factor for cervical cancer,no history of brunilda ii/iii,no abnormal pap smears,at least three pap smears in past 7 years, andlow risk sexual history.Concerns today with brown vaginal discharge x1 week, states she is not due for her period for another weeks. Also admits to an unusal odor.Declines breast masses, dimpling, or nipple discharge. Does not do self breast examsROS as noted in the HPI Sheridan Beauchamp, GATE GUARD [address] [facility] [address], [place], [address], [facility] [employer] 06/15/2024 09:37:36 4 text/html Azeb Robledo is a 33 year old female patient here today to discuss blood pressure concerns She was told at a dentist appt that her BP was too high (140/103). Today it is 147/104. She does not check her BP at home. Admits to headache and some light-headedness. She admits that in the past she took BP meds. LIBRA Chang [address], [facility] [address], [place], [address], [employer] [facility] 07/12/2024 16:11:03 5 text/html Pap/PelvicReported by PatientHPIFor associated factors, patient reportsprior abnormal pap smear (2021)but reportsno risk factor for cervical cancer,no history of brunilda ii/iii,at least three pap smears in past 7 years, andlow risk sexual history. For context, patient reportsappt for screening pap/pelvic/breast exam.Concerns today with pain on intercourseDeclines breast masses, dimpling, or nipple discharge. Does not do self breast examsROS as noted in the HPI LIBRA Chang [address], [facility] [address], [place], [address], [employer] 07/28/2025 16:47:16 OBGyn Episode No OBEpisode recorded.
--- OUTSIDE RECORDS SUMMARY | 2025-10-02 18:08 | XMS_ITS | Data Portability ---
Author Organization [facility] Address [address] [place] [address] [place] [address] Assessment No assessment recorded. Plan of Treatment Reminders Order Date Submit Date Provider Last Modified By Organization Details Last Modified Time Details Appointments None recorded. Lab None recorded. Referral None recorded. Procedures None recorded. Surgeries salpingecto my, laparoscopi c (SURG) 2022 023 [facility], [address], [place], [address], 3 11:21:09 Imaging US, obstetric, biophysical profile + non-stress test 2022 023 [email or web address] [place], [facility] [address], [place], [address], 3 21:29:18 Medication Orders Procardia XL 30 mg tablet,exte nded release 2022 023 [id number], [address] [facility], [place], [place], [id number], 4 14:43:46 Patient TargetsNo targets recorded. Patient InstructionsNo instructions recorded. Reason for Referral None Reported. Results Created Date Observation Date Name Description Value Unit Range Abnormal Flag Note LastModifiedBy Organization Detail LastModifiedTime 08/13/2008/13/2023 CULTU RE: GROUP B STREP SCREE N, REFLE X SUSCE PTIBI LITY result report SEE RESULT S BELOW abnormal Test: Cultu re: Group B Strep , Refle x Susce ptibi lity ([facility]/ [facility] ) Speci men Sourc e: Vagin a/Rec tera Speci men Type: Vagin al/Re ctal Speci men Date: 08/13 5:23 PM Resul t Date: 2022 3:52 PM Resul t Statu s: Final resul t Abnor mal: Yes Resul ting Lab: [facility] [address] [facility] [address] Tel: CULTU RE ----- ----- ----- --- Posit luis fernando for Strep tococ cus agala ctiae (Grou p B) (Abno rmal) Clind amyci n = resis tant, eryth romyc in = resis tant. Cefaz beronica may be used for intra partu m proph ylaxi s in penic illin -uma rgic women at low risk, and Vanco mycin is recom rajni d for women at high risk for anaph ylaxi s. Susce ptibi lity testi ng is not neces raheem for these drugs . Not Available [facility] (Lab) [address], [place], [address], 08/19/2023 16:55:35 07/17/20 23 07/17/2023 US, obste tric, follo w-up No observ ation record ed. [email or web address] [place] [address], [place], [address], 07/17/2023 12:51:08 07/17/2007/17/2023 US, obste tric, bioph ysica l profi le + non-s tress test No observ ation record ed. [email or web address] [place] [address], [place], [address], 07/17/2023 12:50:57 07/17/20 23 07/17/2023 US, obste tric, follo w-up No observ ation record ed. [email or web address] [place] [address], [place], [address], 07/20/2023 10:36:19 07/17/20 23 07/17/2023 non-s tress test No observ ation record ed. [email or web address] [place] [address], [place], [address], 07/17/2023 11:57:25 07/23/2007/23/2023 US, obste tric, bioph ysica l profi le + non-s tress test No observ ation record ed. [email or web address] [place] [address], [place], [address], 07/23/2023 18:15:02 07/23/2007/23/2023 US, obste tric, bioph ysica l profi le + non-s tress test No observ ation record ed. [email or web address] [place] [address], [place], [address], 07/23/2023 17:21:36 07/23/2007/23/2023 non-s tress test No observ ation record ed. [email or web address] [place] [address], [place], [address], 07/23/2023 21:37:36 07/30/2007/30/2023 US, obste tric, bioph ysica l profi le + non-s tress test No observ ation record ed. [email or web address] [place] [address], [place], [address], 07/30/2023 18:10:11 07/30/20 23 07/30/2023 US, obste tric, bioph ysica l profi le + non-s tress test No observ ation record ed. [email or web address] [place] [address], [place], [address], 07/30/2023 23:39:22 07/30/2007/30/2023 non-s tress test No observ ation record ed. [email or web address] [place] [address], [place], [address], 07/30/2023 17:30:25 08/06/2008/06/2023 US, obste tric, bioph ysica l profi le + non-s tress test No observ ation record ed. [email or web address] [place] [address], [place], [address], 08/06/2023 16:49:00 08/06/2008/06/2023 US, obste tric, bioph ysica l profi le + non-s tress test No observ ation record ed. [email or web address] [place] [address], [place], [address], 08/14/2023 10:51:36 08/06/2008/06/2023 non-s tress test No observ ation record ed. [email or web address] [place] [address], [place], [address], 08/06/2023 17:28:56 08/13/2008/13/2023 US, obste tric, bioph ysica l profi le + non-s tress test No observ ation record ed. [email or web address] [place] [address], [place], [address], 08/13/2023 16:37:29 08/13/2008/13/2023 US, obste tric, bioph ysica l profi le + non-s tress test No observ ation record ed. [email or web address] [place] [address], [place], [address], 08/13/2023 21:25:27 08/13/20 non-s tress test No observ ation record ed. [email or web address] Not Available 08/13 17:40:14 08/13/2008/13/2023 non-s tress test No observ ation record ed. [email or web address] [place] [address], [place], [address], 08/18/2023 14:51:50 Result Notes None recorded. Problems Name Problem SNOMED Code Status Onset Date Resolution Date Notes Provider Name and Address Organization Details Recorded Time Past pregnanc y history of gestatio nal diabetes mellitus 987193049 Completed non-insu kimberly dependen t Sofielacey De La Rosa [facility] 3 14:44:23 Deliveri es by [id number] Completed X4 Sofie Ishmaelalvin [facility] 3 14:44:23 Past pregnanc y history of gestatio nal hyperten gerardo 685366331 Completed pre e baby ASA Sofielacey Quiñonesalvin [facility] 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 3 14:44:23 Glucose level outside referenc e range 790164557 Completed 06/29 - Pt checking BS QID WITHOUT diet changes to see if she has GDM or not yet instead of doing 3 hr GTT r/t having COVID! Sofie Quiñonesalvin [facility] 3 14:44:23 Pregnanc y-induce d hyperten gerardo 40538550 Completed RULE IN PRE-E 08/10 Sofie Ishmaelalvin [facility] 3 14:44:23 Backache 301593438 Completed Sofie Ishmaelalvin [facility] 3 14:44:23 Human papillom avirus DNA detectio n Active 2019 Kaykay Dial null, [facility] 0 23:57:42 Hyperten sive disorder 82683011 Active 2019 Kaykay Dial null, [facility] 0 23:57:49 Pregnanc y 29160628 Completed 202209/01/2023 Sofielacey De La Rosa null, [facility] 3 14:44:25 COVID-19 910564983 Completed 2022 serial growth, already taking ASA Sofie Estrella null, [facility] 3 14:44:23 Problem Notes None recorded. Procedures Surgical History Date Name Laterality Status Provider Name and Address Organization Details Recorded Time 08/18/20 23 SECTION (SURG) completed Amy Miller [facility] 11/03/2023 18:01:08 02/24/20 23 Colposcopy completed Cyrus Yu MD [address], [place], [address], [facility] 02/23/2023 20:01:08 02/24/20 23 Colposcopy completed Jojo Mccoy [facility] 02/23/2023 16:31:47 12/18/19 23 Date of Last Pap Smear completed Kaykay Dial [facility] 01/14/2023 10:01:32 07/24/20 20 Colposcopy completed Pura Langston CNM [address], [place], [address], [facility] 07/24/2020 16:27:08 07/24/20 20 Colposcopy completed Kaykay Dial [facility] 07/24/2020 16:10:42 12/03/19 19 section completed [facility] 01/14/2023 10:08:37 08/03/20 15 section completed [facility] 01/14/2023 10:08:49 10/25/19 09 section completed [facility] 01/14/2023 10:09:36 01/26/20 07 section completed [facility] 12/30/2022 20:06:37 Imaging Results None recorded. Procedure Notes None recorded. Medical Equipment None Reported. Allergies No known drug allergies Medications Name Sig Start Date Stop Date Status Note LastModified by Organization Details LastModified Time nifedipin e ER 30 mg tablet,ex tended release 24 hr TAKE 1 TABLET BY MOUTH EVERY DAY 11/24 completed Not Available Not Available Not Available amoxicill in 500 mg capsule TAKE 1 CAPSULE BY MOUTH EVERY 12 HOURS FOR 10 DAYS 12/17 completed Not Available Not Available Not Available clindamyc in HCl 300 mg capsule 05/14 completed Not Available Not Available Not Available fluconazo le 150 mg tablet TAKE 1 TABLET BY MOUTH DAILY 12/17 completed Not Available Not Available Not Available hydrocodo ne 5 mg-acetam inophen 325 mg tablet TAKE 1 TABLET BY MOUTH EVERY 3 HOURS NEEDED 09/01 completed Not Available Not Available Not Available phenazopy ridine 200 mg tablet 05/14 completed Not Available Not Available Not Available metronida zole 0.75 % (37.5 mg/5 gram) vaginal gel INSERT 1 APPLICAT ORFUL VAGINALL Y EVERY DAY AT BEDTIME FOR 5 DAYS active Not Available Not Available No t Available penicilli n V potassium 500 mg tablet TAKE 1 TABLET BY MOUTH EVERY 12 HOURS FOR 10 DAYS 12/17 completed Not Available Not Available Not Available metronida zole 500 mg tablet TAKE 1 TABLET BY MOUTH EVERY 12 HOURS FOR 7 DAYS 04/22 completed Not Available Not Available Not Available tramadol 50 mg tablet 05/14 completed Not Available Not Available Not Available nitrofura ntoin (bulk) powder 08/17 completed Prescrib ed Elsewher e: Yes Loca tion: [place] sam[place]oa [facility] odify By: raquel Samayoa ncounter DateTime : 12/27/19 14 01:00:00 PM Not Available Not Available Not Available lancets Check BS QID 09/06 completed Prescrib ed Elsewher e: No Locat ion: [place] sam[place]oa [facility] odify By: raquel Samayoa ncounter DateTime : 07/05/20 15 03:38:11 PM Not Available Not Available Not Available betametha sone valerate 0.1 % topical cream apply by topical route every day a thin layer to the affected area(s) 04/11 completed Prescrib ed Elsewher e: No Locat ion: [place] samayoa [facility] odify By: darwin Encounte r DateTime : 03/28/20 16 08:37:49 AM Not Available Not Available Not Available cephalexi n 500 mg capsule take 1 capsule by oral route every 6 hours 05/14 completed Not Available Not Available Not Available Cipro 500 mg tablet take 1 tablet (500MG) by oral route every 12 hours 12/26 completed Prescrib ed Elsewher e: No Locat ion: [place] sam[place] [facility] odify By: raquel Samayoa ncounter DateTime : 10/13/20 12 10:19:42 AM Not Available Not Available Not Available progester one micronize d 200 mg capsule take 2 capsule by oral route every day x 10 days 05/14 completed Not Available Not Available Not Available amoxicill in 250 mg capsule take 1 capsule by oral route every 8 hours 05/11 completed Prescrib ed Elsewher e: Yes Loca tion: [place] samayoa [facility] odify By: darwin Encounte r DateTime : 04/11/20 16 03:30:00 PM Not Available Not Available Not Available Anderson 10 mg-325 mg tablet take 1 tablet by oral route every 4 - 6 hours as needed for pain 05/11 completed Prescrib ed Elsewher e: Yes Loca tion: [place] samayoa [facility] odify By: darwin Encounte r DateTime : 04/11/20 16 03:30:00 PM Not Available Not Available Not Available ibuprofen 600 mg tablet TAKE 1 TABLET BY MOUTH EVERY 6 HOURS NEEDED FOR CRAMPING 09/01 completed Not Available Not Available Not Available Vitamin D2 1,250 mcg (50,000 unit) capsule take 1 capsule by oral route every week 09/06 completed Prescrib ed Elsewher e: No Locat ion: [place] sam[place]oa [facility] odify By: raquel miller DateTime : 07/02/20 15 03:44:45 PM Not Available Not Available Not Available ondansetr on 4 mg disintegr ating tablet DISSOLVE 1 TABLET ON THE TONGUE EVERY 6 HOURS NEEDED FOR NAUSEA 09/01 completed Not Available Not Available Not Available Depo-Prov era 150 mg/mL intramusc ular syringe inject 1 millilit er by intramus cular route every 3 months 04/06 completed Prescrib ed Elsewher e: No [facility] odify By: adán díaz DateTime : 01/13/20 19 03:00:00 PM Not Available Not Available Not Available Albina 0.35 mg tablet take 1 tablet by oral route every day 05/11 completed Prescrib ed Elsewher e: No Locat ion: [facility] By: darwin wilson DateTime : 04/11/20 16 03:30:00 PM Not Available Not Available Not Available Azo 95 mg tablet 08/17 completed Prescrib ed Elsewher e: Yes [facility] By: raquel miller DateTime : 12/27/19 14 01:00:00 PM Not Available Not Available Not Available nitrofura ntoin monohydra te/macroc rystals 100 mg capsule TAKE 1 CAPSULE BY MOUTH EVERY 12 HOURS FOR 10 DAYS 02/19 completed Not Available Not Available Not Available Prometriu m 05/14 completed Not Available Not Available Not Available Depo-Prov era 05/14 completed Not Available Not Available Not Available 09/01 completed Not Available Not Available Not Available Baby Aspirin 09/01 completed Not Available Not Available Not Available Loestrin 24 Fe 1 mg-20 mcg (24)/75 mg (4) tablet take 1 tablet by oral route every day 08/17 completed Prescrib ed Elsewher e: No Locat ion: [facility] odify By: [email or web address] Samayoa ncounter DateTime : 12/31/19 14 02:47:22 PM Not Available Not Available Not Available Triveen-D uo DHA 29 mg-1 mg-400 mg oral pack take 2 by Oral route once for 30 days 02/01 completed Prescrib ed Elsewher e: No Locat ion: [facility] odify By: cmedical Encount er DateTime : 01/04/20 15 09:00:00 AM Not Available Not Available Not Available OneTouch Verio test strips Check blood sugar QID - Fasting and 1 hour after breakfas t, lunch, and dinner 09/01 completed Not Available Not Available Not Available OneTouch Verio Flex Meter 09/01 completed Not Available Not Available Not Available Vitals Date Recorded Body height Body mass index (BMI) Body weight Systolic And Diastolic Provider Name and Address Organization Details Last Updated DateTime 11/24/2023 162.56 cm 34.5 kg/m2 19191.07 g 140/84 mm[Hg] Annalise Hughes [facility] 11/24/2023 14:43:33 Date Recorded Body weight Provider Name an d Address Organization Details Last Updated DateTime 08/13/2023 897818.84318 g Cyrus Yu MD [address], [place], [address], [facility] 08/13/2023 17:35:24 Date Recorded Body height Body mass index (BMI) Systolic And Diastolic Systolic And Diastolic Provider Name and Address Organization Details Last Updated DateTime 08/13/2023 162.56 cm 41.4 kg/m2 157/96 mm[Hg] 154/102 mm[Hg] Jojo Mccoy [facility] 08/13/2023 17:03:57 Date Recorded Body height Body mass index (BMI) Body weight Systolic And Diastolic Provider Name and Address Organization Details Last Updated DateTime 08/27/2023 162.56 cm 39.8 kg/m2 426955.42 984 g 137/84 mm[Hg] Jojo Mccoy [facility] 08/27/2023 17:18:34 Date Recorded Body height Body mass index (BMI) Body weight Systolic And Diastolic Provider Name and Address Organization Details Last Updated DateTime 09/01/2023 162.56 cm 38.3 kg/m2 417631.53 5458 g 152/89 mm[Hg] Sofie Quiñonesalvin [facility] 09/01/2023 12:33:36 Social History Question Answer Notes LastModified by Organizat ion Details LastModified Time Tobacco Smoking Status Never Smoker Faheem al, [facility] 06/17/2023 13:57:44 Do You Have An Advance Directive? No [email or web address] Information n ot available 12/17/2022 Are You Blind Or Do You Have Difficulty Seeing? No [email or web address] Information n ot available 12/17/2022 What Is Your Level Of Caffeine Consumption? Moderate [email or web address] Information not available 12/17/2022 How Much Tobacco Do You Chew? None [email or web address] Information not available 12/17/2022 In The 14 Days Before Symptom Onset, Have You Had Close Contact With A Laboratory-confirm ed COVID-19 While That Case Was Ill? No [email or web address] Information n ot available 12/17/2022 In The 14 Days Before Symptom Onset, Have You Had Close Contact With A Person Who Is Under Investigation For COVID-19 While That Person Was Ill? No [email or web address] Information not available 12/17/2022 Have You Been To An Area Known To Be High Risk For COVID-19? No [email or web address] Information not available 12/17/2022 Are You Deaf Or Do You Have Serious Difficulty Hearing? No [email or web address] Information not available 12/17/2022 What Type Of Diet Are You Following? REGULAR [email or web address] Information n ot available 12/17/2022 What Is The Highest Grade Or Level Of School You Have Completed Or The Highest Degree You Have Received? SF07040-0 [email or web address] Information not available 12/17/2022 Are There Any Guns Present In Your Home? No [email or web address] Information not available 12/17/2022 What Was The Date Of Your Most Recent Tobacco Screening? 06/17/2023 [email or web address] Information not available 06/17/2023 Do You Use Protection During Sex? No [email or web address] Information not available 12/17/2022 Do You Use Your Seat Belt Or Car Seat Routinely? Yes [email or web address] Information not available 12/17/2022 Do You Have Smoke And Carbon Monoxide Detectors In Your Home? Yes [email or web address] Information not available 12/17/2022 How Much Tobacco Do You Smoke? No [email or web address] Information not available 07/24/2020 Do You Use Sunscreen Routinely? Yes [email or web address] Information not available 12/17/2022 Have You Used IV Drugs? No [email or web address] Information not available 12/17/2022 Sex: Unknown Functional Status Question Answer Note LastModified by Organizat ion Details LastModified Time Do you use any illicit or recreational drugs? No [email or web address] Information not available 12/17/2022 What is your level of alcohol consumption? None [email or web address] Information not available 07/24/2020 Do you or have you ever used smokeless tobacco? Never used smokeless tobacco [email or web address] Information not available 06/17/2023 Are you able to walk independently without assistance or assistive devices? 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 Never used electronic cigarettes [email or web address] Information not available 06/17/2023 What is your exercise level? Occasional [email or web address] Information not available 07/24/2020 Mental Status Question Answer Note LastModified by Organization D etails LastModified Time Do you feel stressed (tense, restless, nervous, or anxious, or unable to sleep at night)? [id number] Information not available 12/17/2022 Family History Relationship Description Onset Age of this Age Resolved Age Notes LastModified by Organization Details LastModified Time Father No current problems or disability Not available 03/2020 00:02:04 Mother No current problems or disability [email or web address] Not available 03/2020 00:02:04 Medical History Condition Response Other Y Blood Transfusion N Dermatologic Disorders N Gestational Diabetes Y Anxiety Disorder N Autoimmune disease N Arthritis N Polyps N Infertility N Acid Reflux (GERD) N Cancer N Varicosities N Stroke N Neurologic/Epilepsy N Fibromyalgia N Headaches N Kidney Disease N Heart Problems N Kidney or Bladder Problems N Eating Disorder N Art (IVF or FET) N Hepatitis/Liver Disease N No Past Medical History N Urinary Tract Infection N Asthma N Trauma/Violence N Thrombophilias N Allergies (Food, seasonal, environmental ) N Breast Cancer N Drug/Latex Allergies/Reactions N Lung Disease N Defects or Inherited Disease N Breast Problem N Hematologic disorders N Anesthesia Complications N History of STI Y Deep Vein Thrombosis N Polycystic ovary syndrome N History of abnormal pap Y Endometriosis N High Cholesterol N Thyroid Problems N GI Problems N Anemia N Psychiatric Illness N Ovarian Cancer N Diabetes N Pulmonary (TB, Asthma) N Eczema N Abuse/Domestic Violence N Depression/ depression N Heart Disease N Pre-Eclampsia Y Hypertension Y Osteoporosis N Gynecological History Statement/Question Response Date of Last Mammogram Flow Moderate Date of LMP 11/16/2023 N Was last menstrual period normal Y STIs/STDs Y None Desired Control Method BCPs Abnormal Pap Y HPV Vaccine N Duration of Flow (days) 7 Current Control Method None Age at First Child 16 Are cycles usually normal Y Sexually Active? Y Menses Monthly Y Age of first menstrual cycle 12 Date of Last Pap Smear 12/17/2022 Sexual Problems? N LMP Definite N 05/14/2020 Obstetrics History GPAL:G 5 P 5 0 0 5 Type Value Full Term 5 Living 5 Total 5 Past Encounters Encounter ID Performer Location Encounter Start Date Encounter Closed Date Diagnosis/Indication Diagnosis SNOMED-CT Code Diagnosis ICD10 Code Diagnosis IMO Codes Diagnosis Note [id number] [facility] [address] [address] 05/14/2020 16:17:58 05/14/2020 16:44:58 Gynecologic examination 61155836 Z01.419 Take Calcium with Vitamin D 1200mg daily if not receiving in daily diet. It is strongly advised to have an annual flu shot and up can obtain at most pharmacies . If you have not had a TDap shot in the last 10 years you should obtain one as well. Discussed with patient & provided with informatio n regarding Gardisil vaccine to prevent the 4 strains for HPV that cause cervical cancer if under age 26. Encourage safe sexual practices, to use condoms and limit partners if not already in a monogamous relationsh ip. Do monthly self breast exams. Have mammogram yearly or every other year depending on family history. BRCA testing is now available for patients with strong genetic history of female cancer. If interested contact the office. Engage in daily exercise of low impact aerobic exercise 45-60 minutes 4-5 times weekly. Avoid tobacco and illicit drugs as well as using moderation with alcohol intake less than 1-2 8 oz beverages daily. This lifestyle behavior pattern will lead to less health conditions and longer life span. If BMI greater than 25 weight watchers or dietary consult advised. Patient received above instructio ns, and questions have been answered. If you have any questions please call or respond to this email. Patient was made aware of the patient portal and may obtain a paper copy of today's plan if desired. Vitamin D deficiency [phone] 06715 E55.9 R/P labs today Will call with results [id number] Pura Langston [facility] [address],[place] [address] 07/24/2020 15:52:41 07/24/2020 16:59:58 [id number] Pura Langston [facility] [address],[place] [address] 12/17/2022 16:16:53 12/17/2022 16:51:19 Gynecologic examination 97942231 Z01.419 [id number] Pura Langston [facility] [address],[place] [address] 03/27/2023 14:02:36 03/27/2023 14:44:51 Routine care 410856843 Z34.92 Vaginitis 21452103 N76.0 [id number] Catalina Dangelo [facility] [address],[place] [address] 01/29/2023 11:59:08 01/29/2023 13:33:36 Amenorrhea 98404851 N91.2 Venereal d isease screening 462843684 Z11.3 test positive 382961359 Z32.01 Risk factors addressed: Tobacco Cessation, Safe Sexual Practices, environmen raul, work hazards, travel restrictio ns, seat belt use.Eat a health well balanced diet, avoid alcohol, tobacco, and street drugs.Enga ge in daily low impact exercise, avoid temperatur e extremes, and cat, rodent, and bird feces.Avoi d travel to areas where zika virus is a concern.Of fered cf/sma/nip t. Desires testing at 12 weeks. Handouts given and discussed with patient.Ch ildbirth classes recommende d.New OB sheet given.If previous , counseling . Not a candidate. Baby aspirin daily for history of GHTN.Pt verbalizes that she understand s the importance of above instructio ns.All questions were answered.P atient reminded to have annual well woman examinatio n and address [facility] . [id number] Cyrus Yu MD [place] [address],[place] [address] 01/29/2023 11:59:34 01/29/2023 12:32:15 [id number] Cyrus Yu MD [place] [address],[place] [address] 02/11/2023 10:36:58 02/11/2023 11:42:32 Spotting per vagina in [id number] O26.859 Z3A.10 [id number] Cyrus Yu MD [place] [address],[place] [address] 02/23/2023 15:56:18 02/25/2023 10:22:47 Abnormal cervical Papanicolaou smear [id number] R87.619 32-year-ol d female with abnormal Pap smear and presented for colposcopy . It was performed. It was normal. It was not satisfacto ry however. Will take this up after the [id number] Cyrus Yu MD [place] [address],[place] [address] 02/26/2023 10:09:16 02/26/2023 10:39:38 screening [id number] Z36.82 [id number] Cyrus Yu MD [place] [address],[place] [address] 02/26/2023 10:09:39 02/26/2023 11:44:29 Routine care 594158410 Z34.81 [id number] Cyrus Yu MD [place] [address],[place] [address] 04/22/2023 09:03:45 04/22/2023 12:07:01 screening for malformation 092013072 Z36.3 [id number] [facility] [address],[place] [address] 04/22/2023 09:04:12 04/22/2023 10:48:26 Routine care [id number] Z34.92 [id number] Cyrus Yu MD [place] [address],[place] [address] 05/22/2023 10:16:16 05/22/2023 14:52:20 Placenta circumvallata 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 O43.112 Z36.2 Z3A.24 [id number] [facility] [address],[place] [address] 05/22/2023 10:19:05 05/22/2023 12:33:48 Routine care [id number] Z34.92 [id number] Cyrus Yu MD [place] [address],[place] [address] 06/17/2023 13:57:36 06/17/2023 14:53:38 Placenta circumvallata [id number] O43.112 Z36.2 Z3A.24 [id number] [facility] [address],[place] [address] 06/17/2023 13:58:03 06/17/2023 15:48:37 Routine care [id number] Z34.92 [id number] Cyrus Yu MD [place] [address],[place] [address] 06/23/2023 13:40:38 06/23/2023 14:14:46 Spotting per vagina in [id number] O26.859 Z3A.29 [id number] MD Lyssa Patel [address],[place] [address] 06/29/2023 11:15:03 06/29/2023 12:08:09 Routine care 045025026 Z34.81 [id number] MD Lyssa Patel [address],[place] [address] 07/17/2023 10:29:32 07/17/2023 11:26:01 condition affecting obstetrical care of mother 092574256 O35.3XX0 O43.113 Z3A.32 [id number] MD Lyssa Patel [address],[place] [address] 07/17/2023 10:29:57 07/17/2023 12:02:37 Gestational diabetes mellitus 12144672 O24.419 [id number] Cyrus Yu MD [place] [address],[place] [address] 07/17/2023 10:30:43 07/18/2023 18:22:17 section following previous section [id number] O34.219 [id number] MD Lyssa Patel [address],[place] [address] 07/23/2023 16:00:55 07/24/2023 10:57:01 Hypertensive disorder 86327825 I10 [id number] MD Lyssa Patel [address],[place] [address] 07/23/2023 16:01:24 07/23/2023 16:54:15 -induced hypertension 62870978 O13.3 Z3A.33 [id number] MD Lyssa Patel [address],[place] [address] 07/23/2023 16:01:38 07/23/2023 17:07:07 Routine care 599359103 Z34.81 [id number] Cyrus Yu MD [place] [address],[place] [address] 07/30/2023 16:15:34 07/30/2023 17:00:10 -induced hypertension 66407847 O13.3 O99.213 Z3A.34 [id number] Cyrus Yu MD [place] [address],[place] [address] 07/30/2023 16:16:11 07/30/2023 17:37:40 Chronic hypertension complicating AND/OR reason for care during 58212741 O16.9 [id number] Cyrus Yu MD [place] [address],[place] [address] 07/30/2023 16:16:36 07/31/2023 09:00:21 Routine care 456568876 Z34.81 [id number] LISANDRA LEYVA MD [place] [address],[place] [address] 08/06/2023 16:16:04 08/06/2023 16:53:15 -induced hypertension 25340118 O13.3 O99.213 Z3A.35 [id number] LISANDRA LEYVA MD [place] [address],[place] [address] 08/06/2023 16:16:23 08/07/2023 08:53:36 Gestational diabetes mellitus 40293019 O24.419 [id number] LISANDRA LEYVA MD [place] [address],[place] [address] 08/06/2023 16:16:47 08/09/2023 15:50:58 Gestational diabetes mellitus class A2 98009398 O24.414 - induced hypertension 42475909 O13.3 O99.213 Z3A.35 Gestation period, 35 weeks 11928131 Z3A.35 [id number] MD Lyssa Patel [address],[place] [address] 08/13/2023 16:03:53 08/13/2023 16:49:11 -induced hypertension 35527319 O13.3 O43.113 O35.3XX0 O40.3XX0 Z3A.36 [id number] Cyrus Yu MD [place] [address],[place] [address] 08/13/2023 16:04:11 08/13/2023 17:50:54 Chronic hypertension complicating AND/OR reason for care during 88223073 O16.9 [id number] Cyrus Yu MD [place] [address],[place] [address] 08/13/2023 16:04:23 08/13/2023 17:42:05 Routine care 097607360 Z34.81 [id number] Cyrus Yu MD [place] [address],[place] [address] 08/27/2023 17:03:27 08/28/2023 06:01:34 Female sterilization 76406728 Z30.2 Postoperative care 25923 9007 Z48.89 This patient is a -year-old female who presents for postop follow-up. She is 1 week postop from a delivery. Her incision is clean dry and intact. She has no complaints . Her bleeding is minimal. She denies any nausea, vomiting, fever, chills. She denies any chest pain or shortness of breath. Her baby is doing well. Her mood is good. [id number] LISANDRA LEYVA MD [place] [address],[place] [address] 09/01/2023 12:27:08 09/01/2023 14:17:40 Pre-eclampsia 438890624 O14.15 - BP 150s/90-10 0s- asymptomat ic- start procardia XL 30mg daily- will call to review BP log in 1 week- patient to purchase BP cuff [id number] Cyrus Yu MD [place] [address],[place] [address] 09/03/2023 14:52:26 09/03/2023 14:58:51 [id number] [facility] [address],[place] [address] 11/24/2023 14:33:29 11/24/2023 15:08:21 Contraception care management [id number] Z30.9 Will update consent and forms signed for tubal ligation that she consulted with Dr. Yu.She was told this could be resubmitte d for insurance approval.W e agreed to start SLYND until this procedure can be completed. Understand s not prevent for at least a consistent 4wks of use. Discussed all control options in great detail. Pt would like to start POP. She is aware of the risks and benefits. She has contraindi cations to use of OCP or other estrogen containing hormonal therapy. Pt will start her pills on the first thursday following the start of her period. She is aware it is not effective for control the first month. She is also aware of the importance of taking at the same time every day. Encouraged use of condoms as the pill does not protect against STD's. Will return in 3 months for med check. Consent was read and signed. Pt verbalized understand ing. Time spent in visit is a total of 30 mins with at least 50% of visit consisting of counseling and review of plan of care. Health Concerns Section Related Observation LastModified by Organization Detai ls LastModified Time None Recorded Concern Status LastModified by Organization Details LastModified Time None Recorded Advance Directives Directive N: Payers Insurance Date Sequence Insurance Name Policy Number Policy Cagle Covered Member ID Cagle Member ID Guarantor Name 12/09/2022 1 [facility] - DOS PRIOR TO 2021 (MEDICAID REPLACEMENT - HMO) Azeb Robledo [id number] Azeb Robledo 11/23/2023 1 [facility] - DOS ON OR AFTER 21 (MEDICAID REPLACEMENT - HMO) Azeb Robledo [id number] Azeb Robledo Notes Date Note Type Note Provider Name and Address Organization Details Recorded Time 08/13/2023 text/html OB ProblemReport ed by Patient Tammy Maik [facility] 08/13/2023 17:42:14 08/13/2023 text/html Generic HPI TemplateReported by Patient Cyrus Yu MD [address], [place], [address], [facility] 08/13/2023 17:36:11 08/27/2023 text/html This patient is a -year-old female who presents for postop follow-up. She is 1 week postop from a delivery. Her incision is clean dry and intact. She has no complaints. Her bleeding is minimal. She denies any nausea, vomiting, fever, chills. She denies any chest pain or shortness of breath. Her baby is doing well. Her mood is good. Cyrus Yu MD [address], [place], [address], [facility] 08/27/2023 17:34:48 09/01/2023 text/html Presents for BP check. BP 150s/90s-100s at [facility] office and in clinic. Denies symptoms of preeclampsia. No hx of headaches. Baby doing well, formula feeding. LISANDRA LEYVA MD [address], [place], [address], [facility] 09/01/2023 14:15:30 11/24/2023 text/html ROS as noted in the HPI Here today for consultation and update tubal ligation form/consent. Health Hx was reviewed and updated as reported in chart. Verenice Torres [facility] [address], [place], [address], [facility] 11/24/2023 15:06:37 OBGyn Episode Ob Episode Information Episode Created Date Number of Fetuses Patient Bloodtype Patient rh Status Prepregnancy Weight lbs Domestic Partner Domestic Partner Phone Father Name Pumper Head Status 05/14/20 20 1 CLOSED Fetus Data First Name Last Name Admitted to NICU Weight (g) Sex Living Outcome Pediatric Complications Fetus ID Race Codes Race Delivery Type 3430.06 2704 M Full Term 3215 Repeat Patrice Calculation Initial Patrice Date Initial Exam Date Initial Exam Provider Initial Ultrasound Date Last Menstrual Period Date Ultra Sound Weeks Gestation 0 Eighteen To Twenty Week Patrice Update Ultra Sound Date Fundal Height At Umbil Quickening Date Ultra Sound Latest Weeks Gestation Final Patrice Confirmed By Final Patrice Confirmed Date Final Patrice Date Ultra Sound Latest Days Gestation 0 0 Menstrual History Last Menstrual Date Menses Monthly On Bcp Conception Prior Menses Frequency Hcg Plus Date Menarche Onset Age Delivery Information Delivery Date Delivery Type Labor Anesthesia Weeks Gestation Incision Type Labor Labor Length Hrs Delivered By Post Complications Tubal Sterilization Discharge Date Comments 5 38 GDM, GHTN, velamento us cord, poly Discharge Information Feeding Method Contraceptive Method Maternal HG B and HCT Levels Ob Episode Information Episode Created Date Number of Fetuses Patient Bloodtype Patient rh Status Prepregnancy Weight lbs Domestic Partner Domestic Partner Phone Father Name Pumper Head Status 05/14/20 20 1 CLOSED Fetus Data First Name Last Name Admitted to NICU Weight (g) Sex Living Outcome Pediatric Complications Fetus ID Race Codes Race Delivery Type 3883.65 4704 M Full Term 3217 Repeat Patrice Calculation Initial Patrice Date Initial Exam Date Initial Exam Provider Initial Ultrasound Date Last Menstrual Period Date Ultra Sound Weeks Gestation 0 Eighteen To Twenty Week Patrice Update Ultra Sound Date Fundal Height At Umbil Quickening Date Ultra Sound Latest Weeks Gestation Final Patrice Confirmed By Final Patrice Confirmed Date Final Patrice Date Ultra Sound Latest Days Gestation 0 0 Menstrual History Last Menstrual Date Menses Monthly On Bcp Conception Prior Menses Frequency Hcg Plus Date Menarche Onset Age Delivery Information Delivery Date Delivery Type Labor Anesthesia Weeks Gestation Incision Type Labor Labor Length Hrs Delivered By Post Complications Tubal Sterilization Discharge Date Comments 9 38 CHTN, GD M diet controlle d, circumval late placenta Discharge Information Feeding Method Contraceptive Method Maternal HG B and HCT Levels Ob Episode Information Episode Created Date Number of Fetuses Patient Bloodtype Patient rh Status Prepregnancy Weight lbs Domestic Partner Domestic Partner Phone Father Name Pumper Head Status 05/14/20 20 1 CLOSED Fetus Data First Name Last Name Admitted to NICU Weight (g) Sex Living Outcome Pediatric Complications Fetus ID Race Codes Race Delivery Type 3373.36 3704 M Full Term 3218 Primary Patrice Calculation Initial Patrice Date Initial Exam Date Initial Exam Provider Initial Ultrasound Date Last Menstrual Period Date Ultra Sound Weeks Gestation 0 Eighteen To Twenty Week Patrice Update Ultra Sound Date Fundal Height At Umbil Quickening Date Ultra Sound Latest Weeks Gestation Final Patrice Confirmed By Final Patrice Confirmed Date Final Patrice Date Ultra Sound Latest Days Gestation 0 0 Menstrual History Last Menstrual Date Menses Monthly On Bcp Conception Prior Menses Frequency Hcg Plus Date Menarche Onset Age Delivery Information Delivery Date Delivery Type Labor Anesthesia Weeks Gestation Incision Type Labor Labor Length Hrs Delivered By Post Complications Tubal Sterilization Discharge Date Comments 7 38 breech Discharge Information Feeding Method Contraceptive Method Maternal HG B and HCT Levels Ob Episode Information Episode Created Date Number of Fetuses Patient Bloodtype Patient rh Status Prepregnancy Weight lbs Domestic Partner Domestic Partner Phone Father Name Pumper Head Status 05/14/20 20 1 CLOSED Fetus Data First Name Last Name Admitted to NICU Weight (g) Sex Living Outcome Pediatric Complications Fetus ID Race Codes Race Delivery Type 3628.73 6 F Full Term 3216 Repeat Patrice Calculation Initial Patrice Date Initial Exam Date Initial Exam Provider Initial Ultrasound Date Last Menstrual Period Date Ultra Sound Weeks Gestation 0 Eighteen To Twenty Week Patrice Update Ultra Sound Date Fundal Height At Umbil Quickening Date Ultra Sound Latest Weeks Gestation Final Patrice Confirmed By Final Patrice Confirmed Date Final Patrice Date Ultra Sound Latest Days Gestation 0 0 Menstrual History Last Menstrual Date Menses Monthly On Bcp Conception Prior Menses Frequency Hcg Plus Date Menarche Onset Age Delivery Information Delivery Date Delivery Type Labor Anesthesia Weeks Gestation Incision Type Labor Labor Length Hrs Delivered By Post Complications Tubal Sterilization Discharge Date Comments 9 39 PIH, preeclamp ellis Discharge Information Feeding Method Contraceptive Method Maternal HG B and HCT Levels Ob Episode Information Episode Created Date Number of Fetuses Patient Bloodtype Patient rh Status Prepregnancy Weight lbs Domestic Partner Domestic Partner Phone Father Name Pumper Head Status 02/27/20 23 1 O Positive 177 CLOSED Fetus Data First Name Last Name Admitted to NICU Weight (g) Sex Living Outcome Pediatric Complications Fetus ID Race Codes Race Delivery Type 3600.38 64 M true Full Term 15132 Repeat Problems Problem Notes Problem Name Start Date End Date Resolution Snomed Code Not e Glucose level outside reference range [id number] 06/29 - Pt ch ecking BS QID WITHOUT diet changes to see if she has GDM or not yet instead of doing 3 hr GTT r/t having COVID! 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 69062610 RULE IN PRE-E 1 Backache [id number] Patrice Calculation Initial Patrice Date Initial Exam Date Initial Exam Provider Initial Ultrasound Date Last Menstrual Period Date Ultra Sound Weeks Gestation 09/08/2023 02/26/2023 01/29/2023 12/02/2022 8 Eighteen To Twenty Week Patrice Update Ultra Sound Date Fundal Height At Umbil Quickening Date Ultra Sound Latest Weeks Gestation Final Patrice Confirmed By Final Patrice Confirmed Date Final Patrice Date Ultra Sound Latest Days Gestation 0 [email or web address] 02/26/2023 09/08/20 23 0 Pre-gonsalo Flowsheet Flowsheet Date 02/26/2023 Soliman Score Blood Edema Fundus Height Fundus Units Glucose Ketones Leukocytes Nitrite Labor Signs Protein Cervic Dilation Cervic Effacement Cervic Station 12 Type Weight in lbs Pre/Post Dialysis Refused Weight 187.341066535224 BP Diastolic BP Location Tested BP Systolic BP Type 82 R arm 143 sitting 86 L arm 138 sitting Fetus Heart Rate Present A 155 Fetus Movement Comments This patient is a 32-year-ol d female presents for initial care. She is a 5 para 4004 with 4 deliveries. She has a history of preeclampsia gestational diabetes . she did not require insulin for her diabetes of . She is taking a baby aspirin. She has an unremarkable medical and surgical history, aside from deliveries. she has no complaints today. We discussed care in detail. Routine care. We will not test early for gestational diabetes. Flowsheet Date 03/27/2023 Soliman Score Blood Edema Fundus Height Fundus Units Glucose Ketones Leukocytes Nitrite Labor Signs Protein Cervic Dilation Cervic Effacement Cervic Station neg none none trace Type Weight in lbs Pre/Post Dialysis Refused Weight 201.857363033726 BP Diastolic BP Location Tested BP Systolic BP Type 74 118 Fetus Heart Rate Present A 157 Present Fetus Movement A Yes Comments patient is having some vagin al itching, burning and odor and had some bleeding 2 weeks ago.spotting x 2 days very light, none since, vaginal sxs did not resolve with otc monistat will rx flagyl, if any spotting again plan early us otherwise f/u anatomy scan in 4 weeks Flowsheet Date 04/22/2023 Soliman Score Blood Edema Fundus Height Fundus Units Glucose Ketones Leukocytes Nitrite Labor Signs Protein Cervic Dilation Cervic Effacement Cervic Station Type Weight in lbs Pre/Post Dialysis Refused BP Diastolic BP Location Tested BP Systolic BP Type Fetus Heart Rate Present Fetus Movement Comments Flowsheet Date 04/22/2023 Soliman Score Blood Edema Fundus Height Fundus Units Glucose Ketones Leukocytes Nitrite Labor Signs Protein Cervic Dilation Cervic Effacement Cervic Station neg trace none neg Type Weight in lbs Pre/Post Dialysis Refused Weight 206.845993315232 BP Diastolic BP Location Tested BP Systolic BP Type 81 136 Fetus Heart Rate Present Fetus Movement A Yes Comments patient is having some swell ing. reviewed precautions, anatomy incomplete, f/u 4 weeks +FM Flowsheet Date 05/22/2023 Soliman Score Blood Edema Fundus Height Fundus Units Glucose Ketones Leukocytes Nitrite Labor Signs Protein Cervic Dilation Cervic Effacement Cervic Station Type Weight in lbs Pre/Post Dialysis Refused BP Diastolic BP Location Tested BP Systolic BP Type Fetus Heart Rate Present Fetus Movement Comments Flowsheet Date 05/22/2023 Soliman Score Blood Edema Fundus Height Fundus Units Glucose Ketones Leukocytes Nitrite Labor Signs Protein Cervic Dilation Cervic Effacement Cervic Station neg trace none trace Type Weight in lbs Pre/Post Dialysis Refused Weight 219.502846761509 BP Diastolic BP Location Tested BP Systolic BP Type 82 149 Fetus Heart Rate Present Fetus Movement A Yes Comments patient states that having s ome swelling. reviewed precautions, doing well efw 64%, anatomy complete, growth 4 weeks with GCT Flowsheet Date 06/17/2023 Soliman Score Blood Edema Fundus Height Fundus Units Glucose Ketones Leukocytes Nitrite Labor Signs Protein Cervic Dilation Cervic Effacement Cervic Station Type Weight in lbs Pre/Post Dialysis Refused BP Diastolic BP Location Tested BP Systolic BP Type Fetus Heart Rate Present Fetus Movement Comments Flowsheet Date 06/17/2023 Soliman Score Blood Edema Fundus Height Fundus Units Glucose Ketones Leukocytes Nitrite Labor Signs Protein Cervic Dilation Cervic Effacement Cervic Station neg trace none trace Type Weight in lbs Pre/Post Dialysis Refused Weight 225.522490850228 BP Diastolic BP Location Tested BP Systolic BP Type 80 131 Fetus Heart Rate Present Fetus Movement A Yes Comments patient is having some swell ing. resolves by am, PIH precautions, efw 86%, doing well +FM, GCT today f/u 2 weeks Flowsheet Date 06/23/2023 Soliman Score Blood Edema Fundus Height Fundus Units Glucose Ketones Leukocytes Nitrite Labor Signs Protein Cervic Dilation Cervic Effacement Cervic Station Type Weight in lbs Pre/Post Dialysis Refused BP Diastolic BP Location Tested BP Systolic BP Type Fetus Heart Rate Present Fetus Movement Comments Flowsheet Date 06/29/2023 Soliman Score Blood Edema Fundus Height Fundus Units Glucose Ketones Leukocytes Nitrite Labor Signs Protein Cervic Dilation Cervic Effacement Cervic Station 29 Type Weight in lbs Pre/Post Dialysis Refused Weight 230.561489761669 BP Diastolic BP Location Tested BP Systolic BP Type 85 R arm 142 sitting 86 L arm 130 sitting Fetus Heart Rate Present A 145 Fetus Movement A Yes Comments Technically gestational hype rtensive now, to have testing, to deliver at 37 weeks, schedule at next visit. No complaints today, blood sugars are well controlled. Growth ultrasound at next visit. Start testing at next visit. Flowsheet Date 07/17/2023 Soliman Score Blood Edema Fundus Height Fundus Units Glucose Ketones Leukocytes Nitrite Labor Signs Protein Cervic Dilation Cervic Effacement Cervic Station Type Weight in lbs Pre/Post Dialysis Refused BP Diastolic BP Location Tested BP Systolic BP Type Fetus Heart Rate Present Fetus Movement Comments Flowsheet Date 07/17/2023 Soliman Score Blood Edema Fundus Height Fundus Units Glucose Ketones Leukocytes Nitrite Labor Signs Protein Cervic Dilation Cervic Effacement Cervic Station Type Weight in lbs Pre/Post Dialysis Refused BP Diastolic BP Location Tested BP Systolic BP Type Fetus Heart Rate Present Fetus Movement Comments Flowsheet Date 07/17/2023 Soliman Score Blood Edema Fundus Height Fundus Units Glucose Ketones Leukocytes Nitrite Labor Signs Protein Cervic Dilation Cervic Effacement Cervic Station 33 Type Weight in lbs Pre/Post Dialysis Refused Weight 232.61696877572 BP Diastolic BP Location Tested BP Systolic BP Type 77 R arm 129 sitting Fetus Heart Rate Present A 145 Fetus Movement Comments normal growth, normal BPP, r easonable blood sugars, stable blood pressures Flowsheet Date 07/23/2023 Soliman Score Blood Edema Fundus Height Fundus Units Glucose Ketones Leukocytes Nitrite Labor Signs Protein Cervic Dilation Cervic Effacement Cervic Station Type Weight in lbs Pre/Post Dialysis Refused BP Diastolic BP Location Tested BP Systolic BP Type Fetus Heart Rate Present Fetus Movement Comments Flowsheet Date 07/23/2023 Soliman Score Blood Edema Fundus Height Fundus Units Glucose Ketones Leukocytes Nitrite Labor Signs Protein Cervic Dilation Cervic Effacement Cervic Station Type Weight in lbs Pre/Post Dialysis Refused BP Diastolic BP Location Tested BP Systolic BP Type Fetus Heart Rate Present Fetus Movement Comments Flowsheet Date 07/23/2023 Soliman Score Blood Edema Fundus Height Fundus Units Glucose Ketones Leukocytes Nitrite Labor Signs Protein Cervic Dilation Cervic Effacement Cervic Station Type Weight in lbs Pre/Post Dialysis Refused Weight 233.484917064939 BP Diastolic BP Location Tested BP Systolic BP Type 82 R arm 137 sitting Fetus Heart Rate Present Fetus Movement A Yes Comments normal blood sugars per lucia ent - no log today. blood pressures are good. Patient is aware preeclampsia precautions. Reassuring BPP, NST to follow, follow-up in 1 week Flowsheet Date 07/30/2023 Soliman Score Blood Edema Fundus Height Fundus Units Glucose Ketones Leukocytes Nitrite Labor Signs Protein Cervic Dilation Cervic Effacement Cervic Station Type Weight in lbs Pre/Post Dialysis Refused BP Diastolic BP Location Tested BP Systolic BP Type Fetus Heart Rate Present Fetus Movement Comments Flowsheet Date 07/30/2023 Soliman Score Blood Edema Fundus Height Fundus Units Glucose Ketones Leukocytes Nitrite Labor Signs Protein Cervic Dilation Cervic Effacement Cervic Station Type Weight in lbs Pre/Post Dialysis Refused BP Diastolic BP Location Tested BP Systolic BP Type Fetus Heart Rate Present Fetus Movement Comments Flowsheet Date 07/30/2023 Soliman Score Blood Edema Fundus Height Fundus Units Glucose Ketones Leukocytes Nitrite Labor Signs Protein Cervic Dilation Cervic Effacement Cervic Station Type Weight in lbs Pre/Post Dialysis Refused Weight 237.474756893876 BP Diastolic BP Location Tested BP Systolic BP Type 80 R arm 138 sitting Fetus Heart Rate Present A 145 Fetus Movement A Yes Comments good blood pressures, blood sugars well controlled, no complaints, no problems, reassuring testing Flowsheet Date 08/06/2023 Soliman Score Blood Edema Fundus Height Fundus Units Glucose Ketones Leukocytes Nitrite Labor Signs Protein Cervic Dilation Cervic Effacement Cervic Station Type Weight in lbs Pre/Post Dialysis Refused BP Diastolic BP Location Tested BP Systolic BP Type Fetus Heart Rate Present Fetus Movement Comments Flowsheet Date 08/06/2023 Soliman Score Blood Edema Fundus Height Fundus Units Glucose Ketones Leukocytes Nitrite Labor Signs Protein Cervic Dilation Cervic Effacement Cervic Station Type Weight in lbs Pre/Post Dialysis Refused BP Diastolic BP Location Tested BP Systolic BP Type Fetus Heart Rate Present Fetus Movement Comments Flowsheet Date 08/06/2023 Soliman Score Blood Edema Fundus Height Fundus Units Glucose Ketones Leukocytes Nitrite Labor Signs Protein Cervic Dilation Cervic Effacement Cervic Station none none trace Type Weight in lbs Pre/Post Dialysis Refused Weight 241.00992259457 BP Diastolic BP Location Tested BP Systolic BP Type 89 129 Fetus Heart Rate Present A 149 Fetus Movement A Yes Comments Doing ok, swelling stable fr om yesterday. No other preE symptoms. Blood sugars within goal. BPP 07/28. Good movement. No contractions. Flowsheet Date 08/13/2023 Soliman Score Blood Edema Fundus Height Fundus Units Glucose Ketones Leukocytes Nitrite Labor Signs Protein Cervic Dilation Cervic Effacement Cervic Station Type Weight in lbs Pre/Post Dialysis Refused BP Diastolic BP Location Tested BP Systolic BP Type Fetus Heart Rate Present Fetus Movement Comments Flowsheet Date 08/13/2023 Soliman Score Blood Edema Fundus Height Fundus Units Glucose Ketones Leukocytes Nitrite Labor Signs Protein Cervic Dilation Cervic Effacement Cervic Station Type Weight in lbs Pre/Post Dialysis Refused BP Diastolic BP Location Tested BP Systolic BP Type Fetus Heart Rate Present Fetus Movement Comments Flowsheet Date 08/13/2023 Soliman Score Blood Edema Fundus Height Fundus Units Glucose Ketones Leukocytes Nitrite Labor Signs Protein Cervic Dilation Cervic Effacement Cervic Station Type Weight in lbs Pre/Post Dialysis Refused Weight 241.85362904101 BP Diastolic BP Location Tested BP Systolic BP Type 96 R arm 157 sitting 102 R arm 154 sitting Fetus Heart Rate Present A 145 Fetus Movement Comments Worrisome blood pressures, p atient to be observed in labor and delivery. Abnormal recent 24 hour urine protein. Rules in for preeclampsia, scheduled for 5 days from now. No symptoms. Flowsheet Date 08/27/2023 Soliman Score Blood Edema Fundus Height Fundus Units Glucose Ketones Leukocytes Nitrite Labor Signs Protein Cervic Dilation Cervic Effacement Cervic Station Type Weight in lbs Pre/Post Dialysis Refused Weight 232.80275825412 BP Diastolic BP Location Tested BP Systolic BP Type 84 R arm 137 sitting Fetus Heart Rate Present Fetus Movement Comments Flowsheet Date 09/01/2023 Soliman Score Blood Edema Fundus Height Fundus Units Glucose Ketones Leukocytes Nitrite Labor Signs Protein Cervic Dilation Cervic Effacement Cervic Station Type Weight in lbs Pre/Post Dialysis Refused Weight 223.800278972635 BP Diastolic BP Location Tested BP Systolic BP Type 89 152 Fetus Heart Rate Present Fetus Movement Comments Menstrual History Last Menstrual Date Menses Monthly On Bcp Conception Prior Menses Frequency Hcg Plus Date Menarche Onset Age 0212/02/2022 Genetic Screening And Infection History Question Response Note Mental Retardation/Autism false Patient's Age Will Be 35 Years Or Older At Estim ated Date of Delivery false Thalassemia (Moldovan, Welsh, Mediterranean, Or Background): MCV < 80 false Neural Tube Defect (Meningomyelocele, Spina Bifi da, Or Anencephaly) false Congenital Heart Defect false Down Syndrome false Reymundo-Sachs (eg, Denominational, Cajun, Bulgarian-Indian) f alse Kashif Disease false Sickle Cell Disease Or Trait () false Hemophilia Or Other Blood Disorders false Muscular Dystrophy false Cystic Fibrosis false [place]'s Chorea false Intellectual Disability/Autism false If Yes, Was Person Tested For Fragile X? false Other Inherited Genetic Or Chromosomal Disorder false Maternal Metabolic Disorder (eg, Type 1 Diabetes , PKU) false Patient Or Baby's Father Had A Child With Defects Not Listed Above false Recurrent Loss, Or A Stillbirth false Medications (including Suppl ements, Vitamins, Herbs, OTC Drugs), Illicit/Recreational Drugs, Alcohol false If Yes, Agent(s) And Strength/Dosage false Any Other Genetic History false Live With Someone With TB Or Exposed To TB false Patient Or Partner Has History Of Genital Herpes false Rash Or Viral Illness Since Last Menstrual Perio d false History Of STD, Gonorrhea, Chlamydia, HPV, Syphi lis false Other Infection History false History of HIV false History of Hepatitis false Prior GBS-infected child false Hemoglobinopathy Or Carrier false Other Structural Defect false Recent Travel History Outside of Country false Delivery Information Delivery Date Delivery Type Labor Anesthesia Weeks Gestation Incision Type Labor Labor Length Hrs Delivered By Post Complications Tubal Sterilization Discharge Date Comments 3 Induce d [facility] 37 Low Transvers e false Cyrus Yu MD false 08/21/2023 [facility] Discharge Information Feeding Method Contraceptive Method Maternal HG B and HCT Levels
--- OUTSIDE RECORDS SUMMARY | 2025-10-02 18:08 | XMS_ITS | Continuity of Care Document ---
Author Organization [facility] [employer] [facility], [facility] Address [address] [place] [address] Assessment No assessment recorded. Plan of Treatment Reminders Order Date Submit Date Provider Last Modified By Organization Details Last Modified Time Details Appointments None recorded. Lab pap, IG + HR HPV 2024 025 [facility] Out[facility] Lab, [address] [place], [address], 5 17:05:18 bacterial vaginosis + vaginitis panel, vaginal 2024 025 [facility], [address] [place], [address], 5 09:20:36 Referral None recorded. Procedures None recorded. Surgeries None recorded. Imaging None recorded. Medication Orders None recorded. Patient TargetsNo targets recorded. Patient InstructionsNo instructions recorded. Reason for Referral None Reported. Results Created Date Observation Date Name Description Value Unit Range Abnormal Flag Note LastModifiedBy Organization Detail LastModifiedTime Result Notes None recorded. Problems Name Problem SNOMED Code Status Onset Date Resolution Date Notes Provider Name and Address Organization Details Recorded Time Vaginitis 58272594 Active Not Available [facility] 3 09:18:23 Furuncle 111614036 Active Not Available [facility] 3 09:18:23 Cyst of ovary 83457543 Active per pt Not Available [facility] 3 09:18:23 Irregular periods 83533853 Active Not Available [facility] 3 09:18:23 Essential hypertension 79611630 Active 2016 Not Available [facility] 3 09:18:23 Unexplained weight loss 052231301 Active 2020 Not Available [facility] 3 09:18:23 Bacterial vaginosis 740353471 Active 2023 Sheridan KellyLIBRA solano [address], [address] [address], [place], [address] , [employer] 4 08:32:10 Candidiasis of vagina 03311997 Active 2024 SheridanLIBRA Daniel [address], [facility] [address], [place], [address] , [employer] 5 18:15:15 Problem Notes None recorded. Procedures Surgical History Date Name Laterality Status Provider Name and Address Organization Details Recorded Time 5 Date of Last Pap Smear completed Cuca Love RN [facility] [employer] 07/28/2025 16:22:55 7 Abcess Removal completed Not Available [facility] 12/17/2022 09:13:33 9 delivery completed Not Available [facility] 12/17/2022 09:13:33 7 delivery completed Not Available [facility] 12/17/2022 09:13:33 Imaging Results None recorded. Procedure [...] Available Not Available Vitals Date Recorded Body weight Body mass index (BMI) Body height Body temperature Heart rate Respiratory rate Oxygen saturation Pain severity - 0-10 verbal numeric rating [Score] - Reported Systolic And Diastolic Provider Name and Address Organization Details Last Updated DateTime 5 80371.7 8 g 35.4 kg/m2 162.56 cm 97.7 [degF] 77 /min 20 /min 97 % 0 152/102 mm[Hg] Cuca Love RN [place] [employer] 5 16:21:58 Social History Question Answer Notes LastModified by Organizat ion Details LastModified Time Tobacco Smoking Status Never Smoker Not Available [facility] 12/17/2022 09:13:26 Do You Have An Advance Directive? No Information not available 06/15/2024 Is Blood Transfusion Acceptable In An Emergency? Yes Information not available 06/15/2024 What Is Your Level Of Caffeine Consumption? Moderate [id number] Information not available 12/17/2022 What Is Your [...] Type Of Diet Are You Following? REGULAR [id number] 2056 Information not available 12/17/2022 What Is The Highest Grade Or Level Of School You Have Completed Or The Highest Degree You Have Received? [id number] [id number] Information not available 12/17/2022 Have There Been Any Changes To Your Family Or Social Situation? No Information no t available 06/15/2024 Are There Any Guns Present In Your Home? No Information not available 06/15/2024 Do You Use Insect Repellent Routinely? No [id number] Information not available 12/17/2022 Where Do You Live? [facility] Information not available 06/15/2024 Do You Have A Medical Power Of Principal Consultant? No Information not available 06/15/2024 How Many Children Do You Have? 5 Information not available 06/15/2024 Do You Have Any Pets? No Information not available 06/15/2024 What Is Your Relationship Status? Single [id number] Information not available 12/17/2022 Do You Use Your Seat Belt Or Car Seat Routinely? Yes [id number] Information not available 12/17/2022 Do You Have Smoke And Carbon Monoxide Detectors In Your Home? No Information not available 06/15/2024 Are You Passively Exposed To Smoke? No [id number].601392 1355 Information not available 12/17/2022 Are There Any Smokers In Your House? No [id number].043219 [id number] Information not available 12/17/2022 Do You Participate In Social Media? Yes [id number].[id number] 5104 Information not available 12/17/2022 Do You Use Sunscreen Routinely? No [id number].968220 7004 Information not available 12/17/2022 Have You Recently Traveled Abroad? No Information not available 06/15/2024 Are You Currently In School? Yes MIGRATION.516934 0795 Information not available 12/17/2022 Do You Have Any Dietary Restrictions? 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 Occasional [id number].181023 9657 Information not available 12/17/2022 Mental Status Question Answer Note LastModified by Organization D etails LastModified Time Do you feel stressed (tense, restless, nervous, or anxious, or unable to sleep at night)? [id number] Information not available 07/12/2024 Family History Relationship Description Onset Age of this Age Resolved Age Notes LastModified by Organization Details LastModified Time Father No current problems or disability Not available 06/15 09:10:21 Mother No current problems or disability Not available 06/15 09:10:21 Medical History Condition Response SKIN PROBLEMS Y OBESITY Y FEMALE PROBLEMS / INFECTIONS Y HYPERTENSION [...] ICD10 Code Diagnosis IMO Codes Diagnosis Note [id number] José Manuel Michel MD [facility] [place] [id number] 1 07/28/2025 16:10:06 07/28/2025 16:47:59 Gynecologic examination 92452763 Z01.419 Overall healthyDis cussed vaginal hygiene and safe sex practicesD iscussed monthly self breast examsPatie nt questions answered Health Concerns Section Related Observation LastModified by Organization Detai ls LastModified Time None Recorded Concern Status LastModified by Organization Details LastModified Time None Recorded Payers Encounter Date Sequence Insurance Name Policy Number Policy Cagle Covered Member ID Cagle Member ID Guarantor Name 07/28/2025 1 [facility] - DOS ON OR AFTER 21 (MEDICAID REPLACEMENT - HMO) Azeb Robledo [id number] Azeb N Young Notes Date Note Type Note Provider Name and Address Organization Details Recorded Time 5 text/html Pap/PelvicReported by PatientHPIFor associated factors, [...] noted in the HPI LIBRA Chang [address], [facility] [address], [place], [address], [place] [employer] 07/28/2025 16:47:16 OBGyn Episode No OBEpisode recorded.
--- OUTSIDE RECORDS SUMMARY | 2025-10-02 18:08 | XMS_ITS | Clinical Summary ---
Author Organization [facility] Address [address] [place] [address] Care Team Providers Care Manager Travel Name Role Phone All, Cuca English APRN-LOG HOOKER Primary Care Provider Source Comments [employer] [facility],non-owned Affiliates and Associated Physician Practices is amultiple site organization consisting of ambulatory clinics and hospital sitesin [place], [place], [place] and [place]. This disclosure is being madepursuant to the Care Everywhere program and may not contain all information available regarding this patient. 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 Gender Identity Not on file Sexual Orientation Not on file Last Filed Vital Signs Vital Sign Reading Time Taken Comments Blood Pressure 120/76 11/06/2022 2:22 PM [employer]OTH CLE[employer] Pulse 93 11/06/2022 2:22 PM [employer]OTH CLE[employer] Temperature 36.4 C (97.5 F) 11/06/2022 2:22 PM [employer]OTH CLEANER Respiratory Rate 17 11/06/2022 2:22 PM [employer]OTH CLEANER Oxygen Saturation 100% 11/06/2022 2:22 PM BOOTH CLEANER Inhaled Oxygen Concentration - - Weight 72.6 kg (160 lb) 11/06/2022 2:22 PM [employer]OTH CLEANER Height 162.6 cm (5' 4) 11/06/2022 2:22 PM [employer]OTH CLE[employer] Body Mass Index 27.46 11/06/2022 2:22 PM [employer]OTH CLEANER Plan of Treatment Health Maintenance Due Date Last Done Comments HIV SCREENING 2004 HEPATITIS C SCREENING 10/05/2007 PNEUMOCOCCAL VACCINE (1 of 2 - PCV) 2008 PAP SMEAR 2010 HPV VACCINE (1 - 3-dose SCDM series) 2016 DEPRESSION SCREENING 10/19/2024 11/06/2022 COVID-19 VACCINE (1 - season) 2025 INFLUENZA VACCINE (#1) 2025 [...] patient's age to complete this topic Insurance [facility] Care Teams Manager Travel Relationship Specialty Start Date End Date Cuca Carrizales, SOCIAL SCIENCES PROFESSOR-LOG HOOKER [address] [place] [address] PCP - General Nurse Practitioner Family 11/06/22
== END 2025-10-02 16:29 | disposition home or self-care (01) ==
PROVIDERS: Emergency Provider Nurse Practitioner
DX: J32.9 Chronic sinusitis, unspecified (principal); J40 Bronchitis, not specified as acute or chronic; Z87.891 Personal history of nicotine dependence
CPT/HCPCS: 99213; G0463